=== PATIENT | female | born 1985 | race Caucasian/White ===

== ENCOUNTER 2020-03-05 07:47 | Emergency (ER) | payer OTHER, SELFPAY ==
[2020-03-05 07:54] VITALS: BMI 24.7
[2020-03-05 07:56] VITALS: BP 115/69; PULSE 97; RESP 16; TEMP 36.8; O2SAT 96
--- NOTE | 2020-03-05 08:34 | XR_ITS ---
WS: [id number] PORTABLE CHEST HISTORY: dyspnea/cough COMPARISON: 05/28/2015 Lungs are clear and well expanded. No pleural effusion or pneumothorax. Cardiac size: Normal. Mediastinum/Aorta: Normal mediastinum. No osseous abnormality seen. XR/XR chest 1V portable [id number] IMPRESSION: Unremarkable portable chest.
--- NOTE | 2020-03-05 08:38 | ED_ITS ---
HPI - Fever General: Chief Complaint: Fever Stated Complaint: RECENT FEVER/INSECT BITE Time Seen by Provider: 03/05/20 07:53 History of Present Illness: HPI Narrative: 34-year-old female who comes in complaining of a fever that started last night she had a T-max of 102 measured axillary. She has had a cough that is been very minimally productive and a lot of generalized myalgias with nausea. She has an old prescription for Phenergan which she uses for vertigo which she has had chronic problems with that actually helped her nausea quite a bit she did not take anything for her fever it resolved spontaneously overnight. She is not had any known sick contacts at home she not had any known COVID-19 contacts. She denies any GI or symptoms no dysuria urgency or frequency she is previously had a hysterectomy and is at no risk for obviously. She denies any abdominal pain. She has not had previous episodes similar to this. After I seen and taken the history from the patient she mentioned to the pathology laboratory aide that she had a tick bite a few weeks ago we will add a tick panel MD elicited complaint: fever Onset (ago): day(s) (1) Exacerbating factors: nothing Relieving factors: rest and other (antiemetics) Associated symptoms: Reports chills, cough, myalgias and nausea; Deny abdominal pain, flank pain, chest pain, diarrhea, dysuria, headache(s), nasal congestion, rash, rhinorrhea, short of breath, sinus pain, stiffness, sore throat or vomiting Treatments prior to arrival fever: other (previosuly prescribed antiemetics) Review of Systems Const: Reports: chills ENMT: Denies: nasal congestion or sinus pain Card: Denies: chest pain Resp: Reports: productive cough; Denies: dyspnea or non-productive cough GI: Reports: nausea; Denies: abdominal pain, vomiting or diarrhea : Denies: flank pain or dysuria Skin/Breast: Denies: rash or pruritus Neuro: Denies: headache(s) PFS ED PFSH: Medical History (Updated 03/05/20 @ 11:04 by Doyle Aguila DO) Anxiety Asthma Depression Vertigo Surgical History (Updated 03/05/20 @ 08:42 by Doyle Aguila DO) History of hysterectomy History of tubal ligation Social History (Updated 03/05/20 @ 08:42 by Doyle Aguila DO) Smoking and tobacco status: current every day smoker cigarettes Physical Exam Const: COMMON NORMALS: no acute distress GENERAL APPEARANCE: cooperative and comfortable ORIENTATION/CONSCIOUSNESS: Yes awake, Yes oriented to person, Yes oriented to place and Yes oriented to time HENMT: COMMON NORMALS: normocephalic, atraumatic, hearing grossly normal bilaterally, external ears normal, EAC's normal, TM's normal bilaterally, Normal nasal mucous membranes and turbinates present, moist oral mucous membranes and oropharynx normal HEAD & SCALP: normocephalic and atraumatic NOSE: Normal nasal mucous membranes and turbinates present EXTERNAL EAR: Yes external ears normal EXTERNAL AUDITORY CANAL: EAC's normal TYMPANIC MEMBRANE: TM's normal bilaterally Eye: COMMON NORMALS: Equal, round and reactive pupils present, EOMs intact bilaterally, conjunctivae normal and no scleral icterus CONJUNCTIVA: Yes conjunctivae normal PUPIL: Yes Equal, round and reactive pupils present Neck/C-Spine: COMMON NORMALS: full ROM, no lymphadenopathy, supple and no JVD Lymph: LYMPHATIC: no lymphadenopathy noted and no lymphedema noted Resp: COMMON NORMALS: normal respiratory effort, No retractions, No use of accessory muscles and clear to auscultation bilaterally AUSCULTATION: clear to auscultation bilaterally Cardio: COMMON NORMALS: no JVD, regular rate, regular rhythm and No murmurs present (Cardio) RATE: regular rate RHYTHM: regular rhythm GI: COMMON NORMALS: Soft to palpation and No hepatosplenomegaly present AUSCULTATION: Yes normoactive bowel sounds PALPATION: Yes Soft to palpation, No Tenderness to palpation present (GI), No Guarding due to palpation present (GI) and Yes No hepatosplenomegaly present Extremity: COMMON NORMALS: normal to inspection, capillary refill normal, no clubbing, cyanosis or edema, no calf tenderness and no pedal edema Neuro: SENSORIUM/ORIENTATION: Yes oriented to person, Yes oriented to place and Yes oriented to time Skin: GENERAL SKIN EXAM: other (Patient is a small eschared area on the left mid mandible slightly erythematous around there there is some dried eschar in place there is no lymphedema no streaking.) Course Vital Signs: Vital signs: Vital Signs Temperature 98.3 F 03/05/20 07:56 Pulse Rate 66 06/23/20 11:57 Respiratory Rate 16 03/05/20 11:57 Blood Pressure 118/60 03/05/20 11:57 Pulse Oximetry 98 03/05/20 11:57 MDM - Fever MDM Narrative: Medical decision making narrative: Fever of unknown origin am concerned the patient may have been exposed to COVID community wide. We will go ahead and swab her asked her to quarantine herself until we get the result back she does have more gastroenteritis-like symptoms however COVID has been known to present that way. We will give her some Zofran she should self quarantine until the results come back. Topical antibiotic ointment for the area on the left side of the jaw. Lab Data: Labs: Lab Results 03/05/20 03/05/20 03/05/20 Range/Units 08:44 08:44 08:44 WBC 3.4 L (4.0-10.0) 10^3/ uL RBC 4.06 L (4.1-5.3) 10^6/u L Hgb 11.5 (11.5-15.3) g/dL Hct 35.1 L (37.0-47.0) % MCV 86.5 (81-99) fL MCH 28.3 (28.0-34.0) pg MCHC 32.8 (30.0-36.0) g/dL RDW 11.9 L (12.1-15.1) % Plt Count 187 (130-400) 10^3/c mm MPV 8.9 (7.4-10.4) fL Neut % (Auto) 64.3 % Lymph % (Auto) 26.0 % Mower % (Auto) 8.8 % Eos % (Auto) 0.0 % Baso % (Auto) 0.6 % Neut # (Auto) 2.2 (1.8-7.7) 10^3/u L Lymph # (Auto) 0.9 (0.8-4.8) 10^3/u L Mower # (Auto) 0.3 (0.2-0.9) 10^3/u L Eos # (Auto) 0.0 (0.0-0.8) 10^3/u L Baso # (Auto) 0.0 (0.0-0.1) 10^3/u L Nucleated RBC % (a uto) 0 % Nucleated RBCs # 0.0 /100WBC Sodium 137 (136-145) mmol/L Potassium 3.7 (3.5-5.1) mmol/L Chloride 103 (98-107) mmol/L Carbon Dioxide 23 (22-29) mmol/L Anion Gap 14.7 (5-19) BUN 10 (6-20) mg/dL Creatinine 0.5 (0.5-0.9) mg/dL GFR Calculation 142.1 H (90-130) mL/min Glucose 102 (65-115) mg/dL Calculated Osmolal ity 280 L (285-295) mOsm/k g Calcium 8.9 (8.5-10.5) mg/dL Total Bilirubin 0.3 (0.15-1.2) mg/dL AST 15 (0-32) U/L ALT 9 (0-33) U/L Alkaline Phosphata se 56 (35-105) IU/L Total Protein 6.5 L (6.6-8.7) g/dL Albumin 4.2 (3.5-5.2) g/dL Globulin 2.3 (1.3-4.6) g/dL Lipase 15 (13-60) U/L Urine Color (Yellow) Urine Appearance (CLEAR) Urine pH (5-7) Ur Specific Gravit y (1.005-1.030) Urine Protein (Negative) Urine Glucose (UA) (Normal) Urine Ketones (Negative) Urine Blood (Negative) Urine Nitrate (Negative) Urine Bilirubin (NEGATIVE) Urine Urobilinogen (Negative) mg/dL Ur Leukocyte Medina ase (Negative) Urine RBC (0-2) /hpf Urine WBC (0-5) /hpf Ur Squamous Epith Cells (0-5) Urine Bacteria (NONE) Urine Mucus Lyme Ab (Western B lot) <0.90 index SARS-CoV-2 RNA (RT -PCR) (NOT DETECTED) 03/05/20 03/05/20 Range/Units 09:23 11:50 WBC (4.0-10.0) 10^3/ uL RBC (4.1-5.3) 10^6/u L Hgb (11.5-15.3) g/dL Hct (37.0-47.0) % MCV (81-99) fL MCH (28.0-34.0) pg MCHC (30.0-36.0) g/dL RDW (12.1-15.1) % Plt Count (130-400) 10^3/c mm MPV (7.4-10.4) fL Neut % (Auto) % Lymph % (Auto) % Mower % (Auto) % Eos % (Auto) % Baso % (Auto) % Neut # (Auto) (1.8-7.7) 10^3/u L Lymph # (Auto) (0.8-4.8) 10^3/u L Mower # (Auto) (0.2-0.9) 10^3/u L Eos # (Auto) (0.0-0.8) 10^3/u L Baso # (Auto) (0.0-0.1) 10^3/u L Nucleated RBC % (a uto) % Nucleated RBCs # /100WBC Sodium (136-145) mmol/L Potassium (3.5-5.1) mmol/L Chloride (98-107) mmol/L Carbon Dioxide (22-29) mmol/L Anion Gap (5-19) BUN (6-20) mg/dL Creatinine (0.5-0.9) mg/dL GFR Calculation (90-130) mL/min Glucose (65-115) mg/dL Calculated Osmolal ity (285-295) mOsm/k g Calcium (8.5-10.5) mg/dL Total Bilirubin (0.15-1.2) mg/dL AST (0-32) U/L ALT (0-33) U/L Alkaline Phosphata se (35-105) IU/L Total Protein (6.6-8.7) g/dL Albumin (3.5-5.2) g/dL Globulin (1.3-4.6) g/dL Lipase (13-60) U/L Urine Color Yellow (Yellow) Urine Appearance Clear (CLEAR) Urine pH 6.0 (5-7) Ur Specific Gravit y 1.015 (1.005-1.030) Urine Protein Neg (Negative) Urine Glucose (UA) Norm (Normal) Urine Ketones Negative (Negative) Urine Blood 2+ H (Negative) Urine Nitrate Negative (Negative) Urine Bilirubin Neg (NEGATIVE) Urine Urobilinogen Norm (Negative) mg/dL Ur Leukocyte Medina ase Negative (Negative) Urine RBC 0-4 H (0-2) /hpf Urine WBC None (0-5) /hpf Ur Squamous Epith Cells 0-4 H (0-5) Urine Bacteria Trace (NONE) Urine Mucus 2+ Lyme Ab (Western B lot) index SARS-CoV-2 RNA (RT -PCR) Not detected (NOT DETECTED) Discharge Plan Discharge Patient Disposition: Home, Self-Care Clinical Impression: Fever of unknown origin Condition: Stable Prescriptions: New Zofran 4 mg tablet 4 mg PO Q6H PRN (Reason: nausea and vomiting) Qty: 20 RF: 0 No Action promethazine 25 mg Tablet 25 mg PO QID PRN (Reason: Nausea) RF: 0 Discharge Orders: Discharge Order (Routine); Ordered 03/05/20 Ordered By: Doyle Aguila Referrals: Jasiel Khan MD [Primary Care Provider] - Discharge Diet: Clear Liquid Discharge Activity: Increase activity as tolerated Patient Instructions: Fever in Adults (ED), Gastroenteritis (ED) Activity Restrictions/Additional Instructions: Recommend that you self quarantine until the results of your Kovic testing is back. I would expect that you will be off of work for 2 to 3 days until the results are available Tylenol for fever rest if breathing gets more difficult return to the emergency room immediately. You can use Zofran or the promethazine for nausea clear liquid diet for 24 days and advance as tolerated Discharge Date/Time: 03/05/20 11:57 Coding Level of Care Code ED Service Delivery Director for Mita Fwd Exam Comprehensive
[2020-03-05 08:50] LABS: Basophils % 0.6 %; Hematocrit 35.1 % (37.0-47.0); Hemoglobin 11.5 g/dL (11.5-15.3); Lymphocytes # 0.9 10^3/uL (0.8-4.8); Mean Corpuscular HGB Conc 32.8 g/dL (30.0-36.0); Mean Corpuscular Hemoglobin 28.3 pg (28.0-34.0); Mean Corpuscular Volume 86.5 fL (81-99); Mean Platelet Volume 8.9 fL (7.4-10.4); Monocytes # 0.3 10^3/uL (0.2-0.9); Monocytes % 8.8 %; Neutrophils # 2.2 10^3/uL (1.8-7.7); Neutrophils % 64.3 %; Nucleated Red Blood Cells % 0 %; Platelet Count 187 10^3/cmm (130-400); Red Blood Count 4.06 10^6/uL (4.1-5.3); Red Cell Distribution Width 11.9 % (12.1-15.1); White Blood Count 3.4 10^3/uL (4.0-10.0)
[2020-03-05] MEDS: ondansetron 2 mg/ML SDV 2 mL 4 MG IVP (09:05)
[2020-03-05] MEDS: sodium chloride 0.9% 1,000 ML 999 ML IV (09:05)
[2020-03-05 09:07] LABS: Alanine Aminotransferase 9 U/L (0-33); Albumin Level 4.2 g/dL (3.5-5.2); Alkaline Phosphatase 56 IU/L (35-105); Anion Gap 14.7 (5-19); Aspartate Amino Transferase 15 U/L (0-32); Blood Urea Nitrogen 10 mg/dL (6-20); Calcium 8.9 mg/dL (8.5-10.5); Carbon Dioxide 23 mmol/L (22-29); Chloride 103 mmol/L (98-107); Globulin 2.3 g/dL (1.3-4.6); Glomerular Filtration Rate 142.1 mL/min (90-130); Glucose 102 mg/dL (65-115); Lipase 15 U/L (13-60); Osmolality Calculated 280 mOsm/kg (285-295); Potassium 3.7 mmol/L (3.5-5.1); Sodium 137 mmol/L (136-145); Total Bilirubin 0.3 mg/dL (0.15-1.2); Total Protein 6.5 g/dL (6.6-8.7)
[2020-03-05 09:24] VITALS: BP 98/80; PULSE 78; RESP 16; O2SAT 100
[2020-03-05 09:44] LABS: Urine Appearance Clear (CLEAR); Urine Color Yellow (Yellow)
[2020-03-05 09:45] LABS: Add Urine Microscopic? YES; Bilirubin Urine Neg (NEGATIVE); Blood Urine 2+ (Negative); Glucose Urine UA Norm (Normal); Ketones Urine Negative (Negative); Leukocyte Esterase Urine Negative (Negative); Nitrate Urine Negative (Negative); Protein Urine Neg (Negative); Specific Gravity, Urine 1.015 (1.005-1.030); Urobilinogen Urine Norm (Negative)
[2020-03-05 10:07] LABS: Add Urine Culture? No; Bacteria Urine TRACE; Mucus Urine 2+; RBC Urine 0-4 /hpf (0-2); Squamous Epithelial Cell Urine 0-4 (0-5)
[2020-03-05 11:57] VITALS: BP 118/60; PULSE 66; RESP 16; O2SAT 98
[2020-03-06 12:57] LABS: Lyme AB Screen <0.90 index
[2020-03-06 12:57] LABS: Quest SARS-CoV-2 RNA NOT DETECTED (NOT DETECTED)
[2020-03-08 17:22] LABS: E. Chaffeensis AB IGG <1:64; E. Chaffeensis AB IGM <1:20; RMSF IGG NOT DETECTED; RMSF IGM NOT DETECTED
== END 2020-03-05 11:57 | disposition home or self-care (01) ==
PROVIDERS: Emergency Provider Family Medicine; Family Provider Family Medicine; PCP Family Medicine
DX: R50.9 Fever, unspecified (principal); F17.210 Nicotine dependence, cigarettes, uncomplicated
CPT/HCPCS: 12345; 36415; 71045; 80053; 81001; 83690; 85025; 86618; 86666; 86757; 87635; 96360; 96361; 96374; 96375; 99283; 99284; J2405; J7030

== ENCOUNTER 2020-04-15 09:52 | Outpatient (CLI) | payer OTHER, SELFPAY ==
--- NOTE | 2020-04-15 10:01 | XR_ITS ---
WS: [id number] CHEST 2 VIEWS HISTORY: ACUTE BRONCHITIS COMPARISON: 03/05/2020 Lungs: Clear with no abnormality. No pleural effusion or pneumothorax. Cardiac size: Normal. Mediastinum/Aorta: Normal mediastinum. Bones: Normal. XR/XR chest 2V* [id number] IMPRESSION: Normal chest.
--- NOTE | 2021-12-10 15:19 | XR_ITS ---
WS: [id number] Exam: XR KUB [id number] Date/Time of Exam: 12/10/2021 3:21 PM Reason For Exam: back pain No bowel obstruction or free air. Moderate amount of stool in the right colon. No sign of organ enlar gement. Regional bony elements appear normal. Small nonspecific pelvic calcifications noted which may be phleboliths.
== END 2020-04-15 09:53 | disposition home or self-care (01) ==
LOC: RAD 09:55
PROVIDERS: PCP Family Medicine; Visit Provider Family Medicine
DX: J20.9 Acute bronchitis, unspecified (principal)
CPT/HCPCS: 71046

== ENCOUNTER 2020-04-16 09:04 | Emergency (ER) | payer OTHER, SELFPAY ==
[2020-04-16 09:07] VITALS: BMI 25.2
[2020-04-16 09:10] VITALS: BP 107/77; PULSE 70; RESP 14; TEMP 36.7; O2SAT 100
[2020-04-16 09:45] LABS: Basophils % 0.2 %; Eosinophils % 0.3 %; Hematocrit 40.2 % (37.0-47.0); Hemoglobin 12.8 g/dL (11.5-15.3); Lymphocytes % 27.6 %; Mean Corpuscular HGB Conc 31.8 g/dL (30.0-36.0); Mean Corpuscular Hemoglobin 28.3 pg (28.0-34.0); Mean Corpuscular Volume 88.7 fL (81-99); Mean Platelet Volume 9.4 fL (7.4-10.4); Monocytes # 0.6 10^3/uL (0.2-0.9); Monocytes % 5.8 %; Neutrophils % 65.7 %; Nucleated Red Blood Cells % 0 %; Platelet Count 298 10^3/cmm (130-400); Red Blood Count 4.53 10^6/uL (4.1-5.3); Red Cell Distribution Width 12.4 % (12.1-15.1)
--- NOTE | 2020-04-16 09:45 | W.ED.SOB ---
HPI - SOB/Dyspnea General: Chief Complaint: Shortness of Breath/Dyspnea Stated Complaint: cp/sob Time Seen by Provider: 04/16/20 09:06 History of Present Illness: HPI Narrative: 34-year-old female comes in complaining of shortness of breath intermittently for last 2 to 3 weeks she has been short of breath she initially seen her PCP they had evaluated her she has a history of asthma decided she was improving and weeks it Kovic test she does not improve in a week and she underwent Kovic testing results of which came back early last late last week which was negative. She was then started on steroids and antibiotics. Despite this she feels it still not resolving. She does have a nebulizer at home she has been using it about 3 times per day. She has a very slight productive cough initially she states she had a fever but that has since resolved. She also notes she has pain when she takes a deep breath or is in particular positions with inspiration. She denies any hemoptysis. MD elicited complaint: shortness of breath, cough and pain with inspiration Pertinent past history: asthma Onset (ago): week(s) (2+) Context: recent illness Timing: constant Severity: moderate Exacerbating factors: exertion and coughing Relieving factors: oxygen, rest and bronchodilators Known history of: asthma Associated symptoms: Reports chest pain, cough and fever(s); Deny chest congestion, diaphoresis, dizziness, extremity pain, hemoptysis, myalgias, nausea, orthopnea, palpitations, syncope or vomiting Treatment prior to arrival: bronchodilator Review of Systems Const: Reports: fever(s); Denies: diaphoresis ENMT: Denies: throat pain, ear or mastoid pain, nasal discharge or nasal congestion Card: Reports: chest pain; Denies: palpitations, syncope or orthopnea Resp: Denies: hemoptysis or chest congestion GI: Denies: nausea or vomiting : Denies: flank pain, difficulty voiding, dysuria, urinary frequency or urinary urgency Musc: Denies: extremity pain Skin/Breast: Denies: rash or pruritus Neuro: Denies: dizziness PFSH ED PFSH: Medical History Anxiety Asthma Depression Vertigo Surgical History History of hysterectomy History of tubal ligation Social History (Updated 04/16/20 @ 09:50 by Doyle Aguila DO) Smoking and tobacco status: current every day smoker cigarettes Alcohol intake: never Physical Exam Const: COMMON NORMALS: no acute distress GENERAL APPEARANCE: cooperative and comfortable ORIENTATION/CONSCIOUSNESS: Yes awake, Yes oriented to person, Yes oriented to place and Yes oriented to time HENMT: COMMON NORMALS: normocephalic and atraumatic HEAD & SCALP: normocephalic and atraumatic Eye: COMMON NORMALS: Equal, round and reactive pupils present, EOMs intact bilaterally, conjunctivae normal and no scleral icterus CONJUNCTIVA: Yes conjunctivae normal PUPIL: Yes Equal, round and reactive pupils present Neck/C-Spine: COMMON NORMALS: full ROM, no lymphadenopathy, supple and no JVD Lymph: LYMPHATIC: no lymphadenopathy noted and no lymphedema noted Resp: COMMON NORMALS: normal respiratory effort, No retractions, No use of accessory muscles and clear to auscultation bilaterally AUSCULTATION: clear to auscultation bilaterally Cardio: COMMON NORMALS: no JVD, regular rate, regular rhythm and No murmurs present (Cardio) RATE: regular rate RHYTHM: regular rhythm GI: COMMON NORMALS: Soft to palpation and No hepatosplenomegaly present AUSCULTATION: Yes normoactive bowel sounds PALPATION: Yes Soft to palpation, No Tenderness to palpation present (GI), No Guarding due to palpation present (GI) and Yes No hepatosplenomegaly present Extremity: COMMON NORMALS: normal to inspection, capillary refill normal, no clubbing, cyanosis or edema, no calf tenderness and no pedal edema Neuro: SENSORIUM/ORIENTATION: Yes oriented to person, Yes oriented to place and Yes oriented to time Skin: COMMON NORMALS: no rashes or lesions noted GENERAL SKIN EXAM: no rashes or lesions noted Course Vital Signs: Vital signs: Vital Signs Temperature 98.1 F 04/16/20 09:10 Pulse Rate 78 04/16/20 12:25 Respiratory Rate 18 04/16/20 12:25 Blood Pressure 122/74 04/16/20 12:25 Pulse Oximetry 98 04/16/20 12:25 MDM - SOB/Dyspnea MDM Narrative: Medical decision making narrative: To the extent that she does have COVID she is managing very well especially given she has some underlying asthma. I suspect this is more asthma exacerbation. We did swab her for COVID will also start her on prednisone and promethazine as needed for nausea. Also cover her with some Augmentin follow-up if she has any worsening symptoms or change of symptoms we will contact her with the results of her COVID swab. Lab Data: Labs: Lab Results 04/16/20 04/16/20 04/16/20 Range/Units 09:14 09:14 09:14 WBC 11.0 H (4.0-10.0) 10^3/ uL RBC 4.53 (4.1-5.3) 10^6/u L Hgb 12.8 (11.5-15.3) g/dL Hct 40.2 (37.0-47.0) % MCV 88.7 (81-99) fL MCH 28.3 (28.0-34.0) pg MCHC 31.8 (30.0-36.0) g/dL RDW 12.4 (12.1-15.1) % Plt Count 298 (130-400) 10^3/c mm MPV 9.4 (7.4-10.4) fL Neut % (Auto) 65.7 % Lymph % (Auto) 27.6 % [place] % (Auto) 5.8 % Eos % (Auto) 0.3 % Baso % (Auto) 0.2 % Neut # (Auto) 7.20 (1.8-7.7) 10^3/u L Lymph # (Auto) 3.0 (0.8-4.8) 10^3/u L [place] # (Auto) 0.6 (0.2-0.9) 10^3/u L Eos # (Auto) 0.0 (0.0-0.8) 10^3/u L Baso # (Auto) 0.0 (0.0-0.1) 10^3/u L Nucleated RBC % (a uto) 0 % Nucleated RBCs # 0.0 /100WBC D-Dimer 1.15 H (0-0.59) ug/mIFE U Sodium 137 (136-145) mmol/L Potassium 4.0 (3.5-5.1) mmol/L Chloride 101 (98-107) mmol/L Carbon Dioxide 27 (22-29) mmol/L Anion Gap 13.0 (5-19) BUN 9 (6-20) mg/dL Creatinine 0.6 (0.5-0.9) mg/dL GFR Calculation 115.1 (90-130) mL/min Glucose 80 (65-115) mg/dL Calculated Osmolal ity 279 L (285-295) mOsm/k g Calcium 9.2 (8.5-10.5) mg/dL Total Bilirubin 0.2 (0.15-1.2) mg/dL AST 13 (0-32) U/L ALT 13 (0-33) U/L Alkaline Phosphata se 63 (35-105) IU/L Total Protein 7.5 (6.6-8.7) g/dL Albumin 4.7 (3.5-5.2) g/dL Globulin 2.8 (1.3-4.6) g/dL SARS-CoV-2 RNA (RT -PCR) (NOT DETECTED) 04/16/20 Range/Units 12:10 WBC (4.0-10.0) 10^3/ uL RBC (4.1-5.3) 10^6/u L Hgb (11.5-15.3) g/dL Hct (37.0-47.0) % MCV (81-99) fL MCH (28.0-34.0) pg MCHC (30.0-36.0) g/dL RDW (12.1-15.1) % Plt Count (130-400) 10^3/c mm MPV (7.4-10.4) fL Neut % (Auto) % Lymph % (Auto) % [place] % (Auto) % Eos % (Auto) % Baso % (Auto) % Neut # (Auto) (1.8-7.7) 10^3/u L Lymph # (Auto) (0.8-4.8) 10^3/u L [place] # (Auto) (0.2-0.9) 10^3/u L Eos # (Auto) (0.0-0.8) 10^3/u L Baso # (Auto) (0.0-0.1) 10^3/u L Nucleated RBC % (a uto) % Nucleated RBCs # /100WBC D-Dimer (0-0.59) ug/mIFE U Sodium (136-145) mmol/L Potassium (3.5-5.1) mmol/L Chloride (98-107) mmol/L Carbon Dioxide (22-29) mmol/L Anion Gap (5-19) BUN (6-20) mg/dL Creatinine (0.5-0.9) mg/dL GFR Calculation (90-130) mL/min Glucose (65-115) mg/dL Calculated Osmolal ity (285-295) mOsm/k g Calcium (8.5-10.5) mg/dL Total Bilirubin (0.15-1.2) mg/dL AST (0-32) U/L ALT (0-33) U/L Alkaline Phosphata se (35-105) IU/L Total Protein (6.6-8.7) g/dL Albumin (3.5-5.2) g/dL Globulin (1.3-4.6) g/dL SARS-CoV-2 RNA (RT -PCR) Not detected (NOT DETECTED) Discharge Plan Discharge Patient Disposition: Home Clinical Impression: Asthma with exacerbation, Suspected COVID-19 virus infection Condition: Stable Prescriptions: No Action promethazine 25 mg Tablet 25 mg PO QID PRN (Reason: Nausea) RF: 0 prednisone 20 mg Tablet 20 mg PO DAILY RF: 0 Augmentin 875-125 mg Tablet 1 tab PO BID RF: 0 Discharge Orders: Discharge Order (Routine); Ordered 04/16/20 Ordered By: Doyle Aguila Referrals: Jasiel Khan MD [Primary Care Provider] - Discharge Diet: Usual diet Discharge Activity: Increase activity as tolerated Activity Restrictions/Additional Instructions: Please quarantine yourself at home until the results of the COVID test are back. Continue to use albuterol as needed for symptoms. Discharge Date/Time: 04/16/20 12:26 Coding Level of Care Code ED Ski Patrol Director for Chg Fwd Exam Comprehensive
[2020-04-16 09:58] LABS: Alanine Aminotransferase 13 U/L (0-33); Albumin Level 4.7 g/dL (3.5-5.2); Alkaline Phosphatase 63 IU/L (35-105); Aspartate Amino Transferase 13 U/L (0-32); Blood Urea Nitrogen 9 mg/dL (6-20); Calcium 9.2 mg/dL (8.5-10.5); Carbon Dioxide 27 mmol/L (22-29); Chloride 101 mmol/L (98-107); Globulin 2.8 g/dL (1.3-4.6); Glomerular Filtration Rate 115.1 mL/min (90-130); Glucose 80 mg/dL (65-115); Osmolality Calculated 279 mOsm/kg (285-295); Sodium 137 mmol/L (136-145); Total Bilirubin 0.2 mg/dL (0.15-1.2); Total Protein 7.5 g/dL (6.6-8.7)
[2020-04-16 10:29] LABS: D Dimer 1.15 ug/mIFEU (0-0.59)
--- NOTE | 2020-04-16 10:45 | CT_ITS ---
WS: [id number] CT CHEST ANGIOGRAPHY WITH REFORMATS HISTORY: chest pain/dyspnea TECHNIQUE: Contiguous axial images are obtained through the chest during arterial injection of intrav enous contrast. Images are reconstructed to evaluate the pulmonary arteries. MIP imaging also reviewe d. All CT scans at [facility] use at least one of these dose optimization techniques: aut omated exposure control; mA and/or kV adjustment per patient size (includes targeted exams where dose is matched to clinical indication); or iterative reconstruction. CONTRAST: Omnipaque 350; 95 mL IV. DLP: 402.06 mGy.cm COMPARISON: None available. Very good opacification of the pulmonary arteries. No filling defects or pulmonary embolism. Normal-s ized thoracic aorta. No dissection or aneurysm. No pericardial or pleural effusions. Normal size hear t. No pneumonia. There is some very mild haziness over both lungs which may improve with better inspirat ion. No pneumothorax. No mediastinal or hilar adenopathy. Visualized upper abdominal structures are n ormal. No bone destruction. CT/CT angio chest PE protcl [id number] IMPRESSION: 1. No pulmonary embolism. 2. No pneumonia.
[2020-04-16 10:56] VITALS: BP 96/68; PULSE 70; RESP 18; O2SAT 100
--- NOTE | 2020-04-16 10:57 | PC.NURSE ---
Pt updated and informed that she would have a CTA.
--- NOTE | 2020-04-16 11:05 | PC.NURSE ---
Pt taken to CT
[2020-04-16] MEDS: iohexol 350 mg/mL 100 mL Btl IV (11:13)
--- NOTE | 2020-04-16 11:16 | PC.NURSE ---
pt has returned from CT at this time
[2020-04-16 11:26] VITALS: BP 103/68; PULSE 67; RESP 16; O2SAT 100
[2020-04-16 11:47] VITALS: BP 130/92; PULSE 65; RESP 18; O2SAT 93
[2020-04-16 12:00] VITALS: BP 122/74; PULSE 78; RESP 18; O2SAT 98
[2020-04-16 12:25] VITALS: BP 122/74; PULSE 78; RESP 18; O2SAT 98
[2020-04-18 08:20] LABS: Quest SARS-CoV-2 RNA NOT DETECTED (NOT DETECTED)
== END 2020-04-16 12:26 | disposition home or self-care (01) ==
PROVIDERS: Emergency Provider Family Medicine; PCP Family Medicine
DX: J45.901 Unspecified asthma with (acute) exacerbation (principal); F17.210 Nicotine dependence, cigarettes, uncomplicated
CPT/HCPCS: 12345; 71275; 80053; 85025; 85378; 87635; 99283; Q9967

== ENCOUNTER → 2020-06-03 14:59 | Outpatient (BNVA) | payer OTHER, SELFPAY | PROVIDERS: PCP Family Medicine; Visit Provider Nurse Practitioner Family | DX: Z20.828 Contact with and (suspected) exposure to other viral communicable diseases (principal) | CPT/HCPCS: 87635 ==

== ENCOUNTER → 2021-04-22 15:17 | Outpatient (BNVA) | payer OTHER, SELFPAY | PROVIDERS: PCP Family Medicine; Visit Provider Family Medicine | DX: Z20.828 Contact with and (suspected) exposure to other viral communicable diseases (principal) | CPT/HCPCS: 87635 ==

== ENCOUNTER → 2021-04-24 11:24 | Outpatient (BNVA) | payer OTHER, SELFPAY | PROVIDERS: PCP Family Medicine; Visit Provider Nurse Practitioner Family | DX: Z20.822 Contact with and (suspected) exposure to COVID-19 (principal) | CPT/HCPCS: 87426; 87635 ==

== ENCOUNTER → 2021-05-13 11:49 | Outpatient (BNVA) | payer OTHER, SELFPAY | PROVIDERS: PCP Family Medicine; Visit Provider Family Medicine | DX: E66.9 Obesity, unspecified (principal); R53.83 Other fatigue | CPT/HCPCS: 80053; 84443; 85025 ==

== ENCOUNTER → 2021-06-10 12:33 | Outpatient (BNVA) | payer OTHER, SELFPAY | PROVIDERS: PCP Family Medicine; Visit Provider Family Medicine | DX: F43.22 Adjustment disorder with anxiety (principal); F50.89 Other specified eating disorder; R53.82 Chronic fatigue, unspecified; Z68.31 Body mass index [BMI] 31.0-31.9, adult | CPT/HCPCS: 82652; 85014; 85018 ==

== ENCOUNTER → 2021-08-18 11:15 | Outpatient (BNVA) | payer OTHER, SELFPAY | PROVIDERS: PCP Family Medicine; Visit Provider Family Medicine | DX: Z20.828 Contact with and (suspected) exposure to other viral communicable diseases (principal); Z20.822 Contact with and (suspected) exposure to COVID-19 | CPT/HCPCS: 87426; 87635 ==

== ENCOUNTER → 2021-09-16 12:15 | Outpatient (BNVA) | payer OTHER, SELFPAY | PROVIDERS: PCP Family Medicine; Visit Provider Family Medicine | DX: Z20.822 Contact with and (suspected) exposure to COVID-19 (principal) | CPT/HCPCS: 87635 ==

== ENCOUNTER → 2021-10-09 12:08 | Outpatient (BNVA) | payer OTHER, SELFPAY | PROVIDERS: PCP Family Medicine; Visit Provider Nurse Practitioner | DX: J02.9 Acute pharyngitis, unspecified (principal); R50.9 Fever, unspecified; J03.90 Acute tonsillitis, unspecified | CPT/HCPCS: 87400; 87880 ==

== ENCOUNTER → 2021-12-02 11:40 | Outpatient (BNVA) | payer OTHER, SELFPAY | PROVIDERS: PCP Family Medicine; Visit Provider Family Medicine | DX: N39.0 Urinary tract infection, site not specified (principal); R30.0 Dysuria | CPT/HCPCS: 81000 ==

== ENCOUNTER → 2021-12-03 08:58 | Outpatient (BNVA) | payer OTHER, SELFPAY | PROVIDERS: PCP Family Medicine; Visit Provider Family Medicine | DX: N39.0 Urinary tract infection, site not specified (principal); R30.0 Dysuria | CPT/HCPCS: 80048; 83036 ==

== ENCOUNTER → 2021-12-04 11:57 | Outpatient (BNVA) | payer OTHER, SELFPAY | PROVIDERS: PCP Family Medicine; Visit Provider Family Medicine | DX: N39.0 Urinary tract infection, site not specified (principal) | CPT/HCPCS: 87086 ==

== ENCOUNTER 2022-05-29 13:03 | Emergency (ER) | payer OTHER, SELFPAY ==
[2022-05-29 13:10] VITALS: BP 120/85; PULSE 118; RESP 16; TEMP 38.6; O2SAT 99
--- NOTE | 2022-05-29 13:16 | ECG_ITS ---
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 Measurements Intervals [place] Rate: 125 P: 65 PA: 136 QRS: 85 QRSD: 89 T: 47 QT: 311 QTc: 449 Interpretive Statements SINUS TACHYCARDIA MINIMAL ST DEPRESSION [0.025+ mV ST DEPRESSION] Compared to ECG 05/02/2019 12:55:40 ST (T wave) deviation now present Sinus bradycardia no longer present Sinus arrhythmia no longer present Incomplete right bundle-branch block no longer present Electronically Signed On 05-30-2022 8:36:46 CDT by Marisol Bejarano M.D. [email or web address]
--- NOTE | 2022-05-29 13:30 | XRR_ITS ---
PROCEDURE INFORMATION: Exam: XR Chest Exam date and time: 05/29/2022 1:38 PM Age: 37 years old Clinical indication: Dyspnea; Chest pressure; Prior surgery; Surgery type: Tubal, hysto; Patient HX: Tightness and pain in chest TECHNIQUE: Imaging protocol: Radiologic exam of the chest. Views: 1 view. COMPARISON: CR XR chest 2V* [id number] 04/15/2020 10:09 AM FINDINGS: Lungs: Unremarkable. No consolidation. Pleural spaces: Unremarkable. No pleural effusion. No pneumothorax. Heart/Mediastinum: Unremarkable. No cardiomegaly. Bones/joints: Unremarkable. XR/XR chest 1V portable [id number] IMPRESSION: No acute findings.
--- NOTE | 2022-05-29 13:37 | ED_ITS ---
HPI - General Adult General: Chief complaint: COVID symptoms Stated complaint: chest pain, SOB Time Seen by Provider: 05/29/22 13:11 History of Present Illness: Patient is a 37-year-old female with a history of COVID in September presenting to the emergency room with concerns for cough, general weakness and sore throat history for new. In addition, patient reports sharp chest pain on the right side of the chest radiating to the middle of the chest with worse with inspiration. Patient also reported fever and chills with the symptoms. Patient denies any diarrhea melena/hematochezia or complaints or abdominal pain. Patient tells me that her and children were sick at home and were tested negative for COVID. Patient has not been tested for COVID today. Patient came to the emergency room for further evaluation of the symptoms. Patient denies any recent immobilization or surgery. Patient denies any OCP use. Denies any history of smoking. Patient denies history of VTE in the past. Onset:1 day ago Duration:1 day Location:home Severity:moderate Associated symptoms: Reports chest pain (+sharp chest pain with inspiration) and dyspnea; Deny nausea, rash, palpitations or vomiting Review of Systems Const: Reports: fever(s), chills, body aches and fatigue Eyes: Denies: change in vision ENMT: Denies: mouth pain Card: Reports: chest pain (+sharp chest pain with inspiration); Denies: palpitations Resp: Reports: dyspnea and non-productive cough GI: Denies: abdominal pain, nausea, vomiting or diarrhea : Denies: dysuria Musc: Denies: extremity pain Skin/Breast: Denies: rash or new lesions Neuro: Denies: weakness in extremities Psych: Reports: other (Normal mood) Blair/Lymph: Denies: easy bruising PFS ED PFSH: Medical History (Updated 05/29/22 @ 16:46 by Julissa Torres MD) Anxiety Asthma Depression Vertigo Surgical History History of hysterectomy History of tubal ligation Family History Other Cancer Social History Smoking and tobacco status: former smoker Alcohol intake: current Alcohol intake frequency: holidays/special occasions only Physical Exam Const: COMMON NORMALS: alert HENMT: COMMON NORMALS: atraumatic HEAD & SCALP: atraumatic MOUTH: moist mucous membranes abnormal Eye: COMMON NORMALS: EOMs intact bilaterally and conjunctivae normal CONJUNCTIVA: Yes conjunctivae normal Neck/C-Spine: COMMON NORMALS: full ROM and supple Resp: COMMON NORMALS: normal respiratory effort and clear to auscultation bilaterally AUSCULTATION: clear to auscultation bilaterally Cardio: RATE: tachycardic GI: COMMON NORMALS: Soft to palpation and non-tender PALPATION: Yes Soft to palpation OTHER: No focal TTP. NO guarding rebound, guarding, rigidity. No CVA tenderness to percussion. Neg Myers/Neg McBurney's point tenderness, no suprabupic tenderness to palpation. Extremity: COMMON NORMALS: full ROM Neuro: SENSORIUM/ORIENTATION: Yes alert MOTOR EXAM: No Abnormal motor strength present and Other motor observations present (no focal motor deficits) Psych: COMMON NORMALS: speech normal SPEECH: Yes normal speech MOOD & AFFECT: Yes euthymic mood Course Vital Signs: Vital signs: Vital Signs Temperature 101.4 F H 05/29/22 13:10 Pulse Rate 99 05/29/22 17:00 Respiratory Rate 18 05/29/22 17:00 Blood Pressure 108/71 05/29/22 17:00 Pulse Oximetry 100 05/29/22 17:00 Oxygen Delivery Me thod 05/29/22 14:10 [facility] - General Adult Medical Decision Making Patient is a 37-year-old female with a history of COVID in September presenting to the emergency room with concerns for cough, general weakness and sore throat yesterday night. On exam, patient is febrile to 101.4 degrees. Patient is noted to satting greater than 95% without any increased work of breathing. Tachycardiac to the 110s on arrival Patient has clear lung sounds. X-ray chest appears to be clear. Patient has unremarkable white count. Swabs are positive for COVID. CT is negative for PE. She received IVF and Tylenol reports feeling some medically improved. Patient's heart rate improved on reassessment. Patient is able to tolerate p.o. without any difficulty. Her heart rate improved. Patient reports symptomatic improvement after medication and IVF. Rx tylenol PRN fever Disposition: Discharge. Patient counseled regarding diagnostic impression, treatment plan. Patient given ED strict return precautions to return for continuation, worsening, or development of new symptoms. Instructed to f/u w/ PCP regarding symptoms today. Patient verbalized understanding. Lab Data : 05/29/22 14:45 05/29/22 14:45 Radiology Impressions Chest X-Ray 05/29/22 13:30 IMPRESSION: No acute findings. Chest CTA 05/29/22 14:27 IMPRESSION: No acute chest abnormality. Laboratory Results WBC 3.7 10^3/uL (4.0-10.0) L 05/29/22 14:45 RBC 3.84 10^6/uL (4.1-5.3) L 05/29/22 14:45 Hgb 11.0 g/dL (11.5-15.3) L 05/29/22 14:45 Hct 34.9 % (37.0-47.0) L 05/29/22 14:45 MCV 90.9 fl (81-99) 05/29/22 14:45 MCH 28.6 pg (28.0-34.0) 05/29/22 14:45 MCHC 31.5 g/dL (30.0-36.0) 05/29/22 14:45 RDW 12.3 % (12.1-15.1) 05/29/22 14:45 Plt Count 217 10^3/cmm (130-400) 05/29/22 14:45 MPV 9.0 fL (7.4-10.4) 05/29/22 14:45 Neut % (Auto) 78.5 % 05/29/22 14:45 Lymph % (Auto) 9.2 % 05/29/22 14:45 [place] % (Auto) 10.6 % 05/29/22 14:45 Eos % (Auto) 1.1 % 05/29/22 14:45 Baso % (Auto) 0.3 % 05/29/22 14:45 Neut # (Auto) 2.90 10^3/uL (1.8-7.7) 05/29/22 14:45 Lymph # (Auto) 0.3 10^3/uL (0.8-4.8) L 05/29/22 14:45 [place] # (Auto) 0.4 10^3/uL (0.2-0.9) 05/29/22 14:45 Eos # (Auto) 0.0 10^3/uL (0.0-0.8) 05/29/22 14:45 Baso # (Auto) 0.0 10^3/uL (0.0-0.1) 05/29/22 14:45 Nucleated RBC % (auto) 0 % 05/29/22 14:45 Nucleated RBCs # 0.0 /100WBC 05/29/22 14:45 Sodium 134 mmol/L (136-145) L 05/29/22 14:45 Potassium 3.8 mmol/L (3.5-5.1) 05/29/22 14:45 Chloride 101 mmol/L (98-107) 05/29/22 14:45 Carbon Dioxide 22 mmol/L (22-29) 05/29/22 14:45 Anion Gap 14.8 (5-19) 05/29/22 14:45 BUN 8 mg/dL (6-20) 05/29/22 14:45 Creatinine 0.6 mg/dL (0.5-0.9) 05/29/22 14:45 GFR Calculation 113.1 mL/min (90-130) 05/29/22 14:45 Glucose 93 mg/dL (65-115) 05/29/22 14:45 Calculated Osmolality 276 mOsm/kg (285-295) L 05/29/22 14:45 Calcium 8.8 mg/dL (8.5-10.5) 05/29/22 14:45 Nasal Influ A H1 2008 PCR Not detected (NOT DETECT) 05/29/22 14:13 Coronavirus 229E (PCR) Not detected (NOT DETECT) 05/29/22 14:13 Influenza A (H1) PCR Not detected (NOT DETECT) 05/29/22 14:13 Influenza A (H3) PCR Not detected (NOT DETECT) 05/29/22 14:13 Influenza Type A (PCR) Not detected (NOT DETECT) 05/29/22 14:13 Influenza Type B (PCR) Not detected (NOT DETECT) 05/29/22 14:13 SARS-CoV-2 (PCR) Detected (NOT DETECT) A 05/29/22 14:13 Imaging Data Other Imaging: Radiologist's impression: [address] [address] [address] Scan Report Signed Patient: Zach Bocanegra Unit #: [id number] : 1985 Age/Sex: 37 / F ADM Date: 05/29/22 Loc: ER Room/Bed: Attending Dr: Ordering Provider/Ordering MD: Julissa Torres MD Date of Service: 05/29/22 Procedure(s): CT angio chest PE protcl [id number] Accession Number(s): [id number] Report Number: [id number] WS: [id number] CT angio chest PE protcl [id number] REASON FOR EXAM: severe chest pain, tachycardia TECHNIQUE: Coronal and sagittal 2-D and MIP reformations. IV CONTRAST ADMINISTERED: Omnipaque 350 64 mL. TOTAL EXAM DLP: 327.[address] scans at [facility] use at least one of these dose optimization techniques: automated exposure control; mA and/or kV adjustment per patient size (includes targeted exams where dose is matched to clinical indication); or iterative reconstruction. FINDINGS: No pulmonary emboli. Normal thoracic aorta. No mediastinal or hilar mass. No significant adenopathy. No lung nodule or lung mass. No infiltrate. No pleural abnormality. No focal abnormality of the bony thorax. CT/CT angio chest PE protcl [id number] IMPRESSION: No acute chest abnormality. ? Dictated By: Jacob Torres Jr, MD Signed By: Jacob Torres Jr, MD Signed Date/Time: 05/29/22 1541 DD/ [address] [address] XRay Report Signed Patient: Zach Bocanegra Unit #: [id number] : 1985 Age/Sex: 37 / F ADM Date: 05/29/22 Loc: ER Room/Bed: Attending Dr: Ordering Provider/Ordering MD: Julissa Torres MD Date of Service: 05/29/22 Procedure(s): XR chest 1V portable [id number] Accession Number(s): [id number] Report Number: [id number] PROCEDURE INFORMATION: Exam: XR Chest Exam date and time: 05/29/2022 1:38 PM Age: 37 years old Clinical indication: Dyspnea; Chest pressure; Prior surgery; Surgery type: Tubal, hysto; Patient HX: Tightness and pain in chest TECHNIQUE: Imaging protocol: Radiologic exam of the chest. Views: 1 view. COMPARISON: CR XR chest 2V* [id number] 04/15/2020 10:09 AM FINDINGS: Lungs: Unremarkable. No consolidation. Pleural spaces: Unremarkable. No pleural effusion. No pneumothorax. Heart/Mediastinum: Unremarkable. No cardiomegaly. Bones/joints: Unremarkable. XR/XR chest 1V portable [id number] IMPRESSION: No acute findings. ? Dictated By: Papa Olmos MD Signed By: Papa Olmos MD Signed Date/Time: 05/29/22 1418 DD/ 1338 Discharge Plan Discharge Patient Disposition: Home Clinical Impression: Cough, Generalized weakness, Fever, Dyspnea, COVID Condition: Stable Prescriptions: New acetaminophen 500 mg tablet 500 mg PO Q6H PRN (Reason: pain) 5 Days Qty: 20 0RF Paxlovid (EUA) 150 mg x 2- 100 mg tablet See Rx Instructions .ROUTE .COMPLEX Qty: 30 0RF Rx Instructions: take TWO 150 mg tablets of nirmatrelvir with ONE 100 mg tablet of ritonavir twice daily for 5 days No Action ibuprofen 800 mg tablet 800 mg PO .PRN amoxicillin-pot clavulanate [Augmentin] 875-125 mg tablet 1 tab PO Q12H 7 Days Qty: 14 0RF nitrofurantoin macrocrystal 100 mg capsule 100 mg PO BID 7 Days Qty: 14 0RF Rx Instructions: must administer with a meal/food albuterol sulfate 0.63 mg/3 mL solution for nebulization 0.63 mg inhalation QID PRN (Reason: shortness of breath or wheezing) 30 Days Qty: 75 2RF albuterol sulfate 90 mcg/actuation HFA aerosol inhaler 2 puff inhalation Q6H PRN (Reason: shortness of breath or wheezing) Qty: 8.5 2RF buspirone 5 mg tablet 5 mg PO TID PRN (Reason: as needed for anxiety attacks ) Qty: 30 3RF Discharge Orders: Discharge ED (Routine); Ordered 05/29/22 Ordered By: Julissa Torres Discharge Diet: Advance as tolerated Discharge Activity: Increase activity as tolerated Patient Instructions: Acute Cough (ED), COVID-19 (Coronavirus Disease 2019) (ED) Activity Restrictions/Additional Instructions: Come back to the emergency room if your symptoms worsen, have any shortness of breath, fever/chills, dehydration, inability tolerate food or drinks, any difficulty breathing, or any new or concerning complaints. Coding Level of Care Code ED Cd Mixer Helper for Ernestog Fwd Exam Comprehensive
[2022-05-29] MEDS: acetaminophen 500 mg Tablet PO (13:56)
[2022-05-29 14:10] VITALS: O2SAT 100
[2022-05-29 14:12] VITALS: BP 112/73; PULSE 116; RESP 18; O2SAT 100
--- NOTE | 2022-05-29 14:27 | CT_ITS ---
WS: [id number] CT angio chest PE protcl [id number] REASON FOR EXAM: severe chest pain, tachycardia TECHNIQUE: Coronal and sagittal 2-D and MIP reformations. IV CONTRAST ADMINISTERED: Omnipaque 350 64 mL. TOTAL EXAM DLP: 327.[address] scans at [facility] use at least one of these dose optimization techniques: automat ed exposure control; mA and/or kV adjustment per patient size (includes targeted exams where dose is matched to clinical indication); or iterative reconstruction. FINDINGS: No pulmonary emboli. Normal thoracic aorta. No mediastinal or hilar mass. No significant adenopathy. No lung nodule or lung mass. No infiltrate. No pleural abnormality. No focal abnormality of the bony thorax. CT/CT angio chest PE protcl [id number] IMPRESSION: No acute chest abnormality.
[2022-05-29 14:51] LABS: Basophils % 0.3 %; Eosinophils % 1.1 %; Hematocrit 34.9 % (37.0-47.0); Lymphocytes # 0.3 10^3/uL (0.8-4.8); Lymphocytes % 9.2 %; Mean Corpuscular HGB Conc 31.5 g/dL (30.0-36.0); Mean Corpuscular Hemoglobin 28.6 pg (28.0-34.0); Mean Corpuscular Volume 90.9 fl (81-99); Monocytes # 0.4 10^3/uL (0.2-0.9); Monocytes % 10.6 %; Neutrophils % 78.5 %; Nucleated Red Blood Cells % 0 %; Platelet Count 217 10^3/cmm (130-400); Red Blood Count 3.84 10^6/uL (4.1-5.3); Red Cell Distribution Width 12.3 % (12.1-15.1); White Blood Count 3.7 10^3/uL (4.0-10.0)
[2022-05-29 15:13] LABS: Blood Urea Nitrogen 8 mg/dL (6-20); Calcium 8.8 mg/dL (8.5-10.5); Carbon Dioxide 22 mmol/L (22-29); Chloride 101 mmol/L (98-107); Glomerular Filtration Rate 113.1 mL/min (90-130); Glucose 93 mg/dL (65-115); Osmolality Calculated 276 mOsm/kg (285-295); Sodium 134 mmol/L (136-145)
[2022-05-29 15:14] LABS: Anion Gap 14.8 (5-19); Potassium 3.8 mmol/L (3.5-5.1)
[2022-05-29] MEDS: iohexol 350 mg/mL 100 mL Btl IV (15:16)
[2022-05-29 16:04] LABS: Adenovirus Not Detected (NOT DETECT); Chlamydia Pneumoniae Not Detected (NOT DETECT); Coronavirus 229E,HKU1,NL63,OC4 Not Detected (NOT DETECT); Human Metapneumovirus Not Detected (NOT DETECT); Human Rhinovirus/Enterovirus Not Detected (NOT DETECT); Influenza A Not Detected (NOT DETECT); Influenza A H1 Not Detected (NOT DETECT); Influenza A H1-2009 Not Detected (NOT DETECT); Influenza A H3 Not Detected (NOT DETECT); Influenza B Not Detected (NOT DETECT); Mycoplasma Pneumoniae Not Detected (NOT DETECT); Parainfluenza Virus Type 1 Not Detected (NOT DETECT); Parainfluenza Virus Type 2 Not Detected (NOT DETECT); Parainfluenza Virus Type 3 Not Detected (NOT DETECT); Parainfluenza Virus Type 4 Not Detected (NOT DETECT); Respiratory Syncytial Virus A Not Detected (NOT DETECT); Respiratory Syncytial Virus B Not Detected (NOT DETECT); SARS-COV-2 Detected (NOT DETECT)
[2022-05-29 16:07] VITALS: BP 108/64; RESP 17; O2SAT 97
[2022-05-29 16:11] LABS: Influenza A Not Detected (NOT DETECT); Influenza A H1 Not Detected (NOT DETECT); Influenza A H1-2009 Not Detected (NOT DETECT); Influenza A H3 Not Detected (NOT DETECT); Influenza B Not Detected (NOT DETECT); Results from Genmark
[2022-05-29 17:00] VITALS: BP 108/71; PULSE 99; RESP 18; O2SAT 100
== END 2022-05-29 17:02 | disposition home or self-care (01) ==
PROVIDERS: Emergency Provider Emergency Medicine
DX: U07.1 COVID-19 (principal); R06.00 Dyspnea, unspecified; R50.9 Fever, unspecified; R53.1 Weakness; R05.9 Cough, unspecified
CPT/HCPCS: 71045; 71275; 80048; 85025; 87631; 87635; 93005; 99285; Q9967

== ENCOUNTER → 2022-07-22 15:14 | Outpatient (BNVA) | payer OTHER, SELFPAY | PROVIDERS: Visit Provider Family Medicine | DX: F43.22 Adjustment disorder with anxiety (principal); J45.21 Mild intermittent asthma with (acute) exacerbation; R63.5 Abnormal weight gain | CPT/HCPCS: 80053; 84439; 84443; 85025 ==

== ENCOUNTER 2022-09-21 11:07 | Emergency (ER) | payer OTHER, SELFPAY ==
--- NOTE | 2022-09-21 11:16 | ECG_ITS ---
[facility] Test Date: 2022-09-21 Pat Name: Zach Bcoanegra Department: Room: Gender: Female Head Of Design: : 1985 Requested By: Doyle Perez Order Number: [id number] Charisse MD: Petra Perry M.D. Measurements Intervals [place] Rate: 82 P: 54 OK: 153 QRS: 79 QRSD: 105 T: 61 QT: 356 QTc: 418 Interpretive Statements SINUS RHYTHM WITH SINUS ARRHYTHMIA Compared to ECG 05/29/2022 13:16:55 Sinus tachycardia no longer present ST (T wave) deviation no longer present Electronically Signed On 09-21-2022 20:29:20 EAP CONSULTANT by Petra Perry M.D. [email or web address] [facility] hospitalCornerstone OnDemand/store/NU/[id number] f
[2022-09-21 11:18] VITALS: BP 124/89; PULSE 86; RESP 14; TEMP 36.7; BMI 34.0
--- NOTE | 2022-09-21 11:43 | XRR_ITS ---
PROCEDURE INFORMATION: Exam: XR Chest Exam date and time: 09/21/2022 11:58 AM Age: 37 years old Clinical indication: Cough and dyspnea; Additional info: Dyspnea/cough TECHNIQUE: Imaging protocol: Radiologic exam of the chest. Views: 1 view. COMPARISON: CR XR chest 1V portable [id number] 05/29/2022 1:38 PM FINDINGS: Lungs: Unremarkable. No consolidation. Pleural spaces: Unremarkable. No pleural effusion. No pneumothorax. Heart/Mediastinum: Unremarkable. No cardiomegaly. Bones/joints: Unremarkable for age. XR/XR chest 1V portable [id number] IMPRESSION: Negative chest
--- NOTE | 2022-09-21 12:09 | ED_ITS ---
HPI - Chest Pain General: Chief Complaint: Chest Pain Stated Complaint: chest pain Time Seen by Provider: 09/21/22 11:34 Source: patient Mode of arrival: ambulatory History of Present Illness: 37-year-old female who presents to the emergency room complaining of chest pain shortness of breath nausea and lightheadedness denies any other symptoms. No fever sweats chills no productive cough she has not noticed anything that makes her symptoms better or worse she has no history of any arrhythmias or heart disease. She does have a history of asthma she used her nebulizer a few days ago when she had some symptoms but it did not really seem to help any. MD complaint: chest pain Onset (ago): minute(s) Timing of current episode: episodic Onset: during rest Pain location: left chest Pain radiation: abdomen Severity: mild Quality: aching Relieving factors: nothing Exacerbating factors: nothing Associated symptoms: Reports dyspnea and nausea; Deny abdominal pain, diaphoresis, fever(s), leg edema, palpitations, sense of impending doom, syncope or vomiting Treatment prior to arrival: none Review of Systems Const: Denies: fever(s), chills, fatigue, malaise or diaphoresis ENMT: Denies: throat pain, ear or mastoid pain, nasal discharge or nasal congestion Card: Reports: chest pain; Denies: palpitations, irregular heart rhythm, edema or syncope Resp: Reports: dyspnea GI: Reports: nausea; Denies: abdominal pain or vomiting : Denies: flank pain, difficulty voiding, dysuria, urinary frequency or urinary urgency Skin/Breast: Denies: rash or pruritus [facility] ED PFSH: Medical History (Updated 09/29/22 @ 00:00 by ARELI Oreilly) Anxiety Asthma Depression Vertigo Surgical History History of hysterectomy History of tubal ligation Family History Other Cancer Social History Smoking and tobacco status: never smoked Alcohol intake: current Alcohol intake frequency: holidays/special occasions only Female Reproductive History: Spontaneous abortions: No Physical Exam Const: GENERAL APPEARANCE: cooperative and comfortable ORIENTATION/CONSCIOUSNESS: Yes awake, Yes oriented to person, Yes oriented to place and Yes oriented to time HENMT: COMMON NORMALS: normocephalic, atraumatic and hearing grossly normal bilaterally HEAD & SCALP: normocephalic and atraumatic Resp: COMMON NORMALS: normal respiratory effort, No retractions, No use of ac cessory muscles and clear to auscultation bilaterally AUSCULTATION: clear to auscultation bilaterally Cardio: COMMON NORMALS: regular rate, regular rhythm and No murmurs present (Cardio) RATE: regular rate RHYTHM: regular rhythm GI: COMMON NORMALS: Soft to palpation and No hepatosplenomegaly present AUSCULTATION: Yes normoactive bowel sounds PALPATION: Yes Soft to palpation, No Tenderness to palpation present (GI), No Guarding due to palpation present ( GI) and Yes No hepatosplenomegaly present Extremity: COMMON NORMALS: normal to inspection, capillary refill normal, no clubbing, cyanosis or edema, no calf tenderness and no pedal edema Neuro: SENSORIUM/ORIENTATION: Yes oriented to person, Yes oriented to place and Yes oriented to time Skin: COMMON NORMALS: no rashes or lesions noted GENERAL SKIN EXAM: no rashes or lesions noted Course Vital Signs: Vital signs: Vital Signs Temperature 98.0 F 09/21/22 11:18 Pulse Rate 79 09/21/22 16:24 Respiratory Rate 16 09/21/22 16:24 Blood Pressure 122/79 09/21/22 16:24 Pulse Oximetry 100 09/21/22 16:24 Oxygen Delivery Me thod 09/21/22 15:46 MDM - Chest Pain Medical Decision Making Labs and imaging reviewed on the chart. Chest x-ray does not show any acute changes. Will discharge home with steroids albuterol as needed for symptoms. F ollow-up with her primary care if persist may need inhaled corticosteroid for period of time. Medical Records I reviewed the patient's medical records. Lab Data I reviewed the patient's lab results. 09/21/22 12:36 09/21/22 12:36 Radiology Impressions Chest X-Ray 09/21/22 11:43 IMPRESSION: Negative chest Laboratory Results WBC 5.8 10^3/uL (4.0-10.0) 09/21/22 12:36 RBC 4.48 10^6/uL (4.1-5.3) 09/21/22 12:36 Hgb 12.4 g/dL (11.5-15.3) 09/21/22 12:36 Hct 38.7 % (37.0-47.0) 09/21/22 12:36 MCV 86.4 fl (81-99) 09/21/22 12:36 MCH 27.7 pg (28.0-34.0) L 09/21/22 12:36 MCHC 32.0 g/dL (30.0-36.0) 09/21/22 12:36 RDW 12.6 % (12.1-15.1) 09/21/22 12:36 Plt Count 296 10^3/cmm (130-400) 09/21/22 12:36 MPV 9.2 fL (7.4-10.4) 09/21/22 12:36 Neut % (Auto) 58.8 % 09/21/22 12:36 Lymph % (Auto) 30.9 % 09/21/22 12:36 [place] % (Auto) 8.1 % 09/21/22 12:36 Eos % (Auto) 1.7 % 09/21/22 12:36 Baso % (Auto) 0.3 % 09/21/22 12:36 Neut # (Auto) 3.42 10^3/uL (1.8-7.7) 09/21/22 12:36 Lymph # (Auto) 1.8 10^3/uL (0.8-4.8) 09/21/22 12:36 [place] # (Auto) 0.5 10^3/uL (0.2-0.9) 09/21/22 12:36 Eos # (Auto) 0.1 10^3/uL (0.0-0.8) 09/21/22 12:36 Baso # (Auto) 0.0 10^3/uL (0.0-0.1) 09/21/22 12:36 Nucleated RBC % (auto) 0 % 09/21/22 12:36 Nucleated RBCs # 0.0 /100WBC 09/21/22 12:36 Sodium 135 mmol/L (136-145) L 09/21/22 12:36 Potassium 4.0 mmol/L (3.5-5.1) 09/21/22 12:36 Chloride 101 mmol/L (98-107) 09/21/22 12:36 Carbon Dioxide 25 mmol/L (22-29) 09/21/22 12:36 Anion Gap 13.0 (5-19) 09/21/22 12:36 BUN 11 mg/dL (6-20) 09/21/22 12:36 Creatinine 0.5 mg/dL (0.5-0.9) 09/21/22 12:36 GFR Calculation 139.6 mL/min (90-130) H 09/21/22 12:36 Glucose 81 mg/dL (65-115) 09/21/22 12:36 Calculated Osmolality 278 mOsm/kg (285-295) L 09/21/22 12:36 Calcium 9.0 mg/dL (8.5-10.5) 09/21/22 12:36 Troponin T Gen 5 ng/L 6 ng/L (0-10) 09/21/22 12:36 Discharge Plan Discharge Patient Disposition: Home Clinical Impression: Acute viral bronchitis, Chest pain, pleuritic Condition: Stable Prescriptions: New Medrol (Viet) 4 mg tablets,dose pack See Rx Instructions .ROUTE .COMPLEX Qty: 21 0RF Rx Instructions: orally per package directions No Action ketoconazole 2 % cream 1 applic topical BID Qty: 30 1RF celecoxib [Celebrex] 100 mg capsule 100 mg PO BID PRN (Reason: pain) Qty: 60 3RF buspirone 5 mg tablet 5 mg PO TID PRN (Reason: as needed for anxiety attacks ) Qty: 30 3RF albuterol sulfate 0.63 mg/3 mL solution for nebulization See Rx Instructions .ROUTE .COMPLEX Qty: 90 2RF Dose Instruction: INHALE 1 VIAL USING NEBULIZER FOUR TIMES DAILY FOR 30 DAYS NEEDED FOR SHORTNESS OF BREATH OR WHEEZING Rx Instructions: INHALE 1 VIAL USING NEBULIZER FOUR TIMES DAILY FOR 30 DAYS NEEDED FOR SH ORTNESS OF BREATH OR WHEEZING albuterol sulfate 90 mcg/actuation HFA aerosol inhaler See Rx Instructions .ROUTE .COMPLEX Qty: 8.5 2RF Dose Instruction: INHALE 2 PUFFS EVERY SIX HOURS NEEDED SHORTNESS OF BREATH AND WHEEZING Rx Instructions: INHALE 2 PUFFS EVERY SIX HOURS NEEDED SHORTNESS OF BREATH AND WHEEZING Discharge Orders: Discharge ED (Routine); Ordered 09/21/22 Ordered By: Doyle Aguila Referrals: Gonzalo Figueroa, DO [Primary Care Provider] - Discharge Diet: Usual diet Discharge Activity: Increase activity as tolerated Patient Instructions: Opioid Safety, Pain Management Activity Restrictions/Additional Instructions: You are seen today for chest pain. Your EKG was normal your lab work was normal. Your description of symptoms sounds is noncardiac. We will put you on prednisone taper. Continue to use your albuterol as needed return if you have any worsening symptoms. Coding Level of Care Code ED Integrated Logistics Support Manager for Chg Fwd Exam Detailed
[2022-09-21 12:45] LABS: Basophils % 0.3 %; Eosinophils # 0.1 10^3/uL (0.0-0.8); Eosinophils % 1.7 %; Hematocrit 38.7 % (37.0-47.0); Hemoglobin 12.4 g/dL (11.5-15.3); Lymphocytes # 1.8 10^3/uL (0.8-4.8); Lymphocytes % 30.9 %; Mean Corpuscular Hemoglobin 27.7 pg (28.0-34.0); Mean Corpuscular Volume 86.4 fl (81-99); Mean Platelet Volume 9.2 fL (7.4-10.4); Monocytes # 0.5 10^3/uL (0.2-0.9); Monocytes % 8.1 %; Neutrophils # 3.42 10^3/uL (1.8-7.7); Neutrophils % 58.8 %; Nucleated Red Blood Cells % 0 %; Platelet Count 296 10^3/cmm (130-400); Red Blood Count 4.48 10^6/uL (4.1-5.3); Red Cell Distribution Width 12.6 % (12.1-15.1); White Blood Count 5.8 10^3/uL (4.0-10.0)
[2022-09-21 13:02] LABS: Blood Urea Nitrogen 11 mg/dL (6-20); Carbon Dioxide 25 mmol/L (22-29); Chloride 101 mmol/L (98-107); Creatinine Clr Calc Pharmacy 150.6208; Glomerular Filtration Rate 139.6 mL/min (90-130); Glucose 81 mg/dL (65-115); Osmolality Calculated 278 mOsm/kg (285-295); Sodium 135 mmol/L (136-145)
[2022-09-21 13:27] VITALS: BP 105/62; PULSE 81; RESP 16; O2SAT 100
[2022-09-21 14:58] LABS: Troponin T (5th) Once 6 ng/L (0-10)
--- NOTE | 2022-09-21 14:59 | ECG_ITS ---
[facility] Test Date: 2022-09-21 Pat Name: Zach Bocanegra Department: Room: Gender: Female Wood Crafter: : 1985 Requested By: Doyle Perez Order Number: [id number] Charisse MD: Petra Perry M.D. Measurements Intervals [place] Rate: 76 P: 56 SC: 164 QRS: 82 QRSD: 104 T: 62 QT: 393 QTc: 444 Interpretive Statements SINUS RHYTHM Compared to ECG 09/21/2022 11:16:06 Sinus arrhythmia no longer present Electronically Signed On 09-21-2022 20:32:26 RELIEF MANAGER by Petra Perry M.D. [email or web address] regional hospitalSolectria Renewablesmetrohealth main campus medical centerTriton Systems, Inc/store/OM/[id number]/ecg/[id number]
[2022-09-21] MEDS: sodium chloride 0.9% 1,000 ML 999 ML IV (15:43)
[2022-09-21 15:46] VITALS: BP 122/79; PULSE 79; RESP 16; O2SAT 100
[2022-09-21 16:24] VITALS: BP 122/79; PULSE 79; RESP 16; O2SAT 100
== END 2022-09-21 16:26 | disposition home or self-care (01) ==
PROVIDERS: Emergency Provider Family Medicine; PCP Family Medicine
DX: J20.8 Acute bronchitis due to other specified organisms (principal); R09.1 Pleurisy
CPT/HCPCS: 71045; 80048; 84484; 85025; 93005; 96360; 99285; J7030

== ENCOUNTER 2023-05-31 13:43 | Outpatient (CLI) | payer OTHER, SELFPAY ==
--- NOTE | 2023-05-31 13:59 | XR_ITS ---
WS: [id number] XR hip BI 3-4V wo/w pel [id number] REASON FOR EXAM: Right hip pain FINDINGS: RIGHT HIP: No fracture or focal bone lesion. Joint space is intact and well preserved. No soft tissue abnormality. LEFT HIP: No fracture or focal bone lesion. Joint spaces intact and well preserved. No soft tissue abnormality. IMPRESSION: No significant abnormality of the right or left hip.
== END 2023-05-31 13:44 | disposition home or self-care (01) ==
PROVIDERS: PCP Family Medicine; Visit Provider Family Medicine
DX: M25.551 Pain in right hip (principal)
CPT/HCPCS: 73522

== ENCOUNTER 2023-08-04 01:27 | Emergency (ER) | payer OTHER, SELFPAY ==
[2023-08-04 01:34] VITALS: BP 124/84; PULSE 117; RESP 14; TEMP 36.8; O2SAT 100
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
[2023-08-04 01:51] VITALS: BP 129/78; PULSE 112; RESP 18; O2SAT 99
[2023-08-04] MEDS: acetaminophen 500 mg Tablet 1000 MG PO (02:08)
[2023-08-04] MEDS: ondansetron 4 MG Tablet PO (02:08)
[2023-08-04 03:27] VITALS: BP 106/71; PULSE 89; O2SAT 99
== END 2023-08-04 03:30 | disposition home or self-care (01) ==
PROVIDERS: Emergency Provider Emergency Medicine; PCP Family Medicine
DX: S00.83XA Contusion of other part of head, initial encounter (principal); Y04.2XXA Assault by strike against or bumped into by another person, initial encounter
CPT/HCPCS: 70450; 99284; Q0162

== ENCOUNTER 2023-11-11 22:20 | Emergency (ER) | payer OTHER, SELFPAY ==
[2023-11-11 22:28] VITALS: BP 123/73; PULSE 120; RESP 20; TEMP 36.7; O2SAT 98
--- NOTE | 2023-11-11 22:40 | PC.NURSE ---
PD and RD at bedside
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
[2023-11-11] MEDS: acetaminophen 500 mg Tablet 1000 MG PO (23:19)
--- NOTE | 2023-11-12 00:04 | PC.NURSE ---
pt came back to sign d/c papers 117/85 o2 100%RA HR130 temp 98.1 ERP aware of documented HR
== END 2023-11-11 23:55 | disposition home or self-care (01) ==
PROVIDERS: Emergency Provider Nurse Practitioner Family; PCP Family Medicine
DX: S63.91XA Sprain of unspecified part of right wrist and hand, initial encounter (principal); S09.90XA Unspecified injury of head, initial encounter; Y04.2XXA Assault by strike against or bumped into by another person, initial encounter; Y92.239 Unspecified place in hospital as the place of occurrence of the external cause; Y99.0 Civilian activity done for income or pay
CPT/HCPCS: 70450; 73130; 99284

== ENCOUNTER 2023-11-24 07:11 | Outpatient (CLI) | payer OTHER, SELFPAY ==
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
== END 2023-11-24 07:12 | disposition home or self-care (01) ==
LOC: RAD 07:12
PROVIDERS: PCP Family Medicine; Visit Provider Family Medicine
DX: M54.2 Cervicalgia (principal); M54.12 Radiculopathy, cervical region
CPT/HCPCS: 72040

== ENCOUNTER 2023-12-06 13:23 | Outpatient (RCR) | payer OTHER, SELFPAY | END 2023-12-12 23:59 | disposition home or self-care (01) | LOC: SPT 13:23 | PROVIDERS: PCP Family Medicine; Visit Provider Family Medicine | DX: M54.12 Radiculopathy, cervical region (principal); S06.0X0D Concussion without loss of consciousness, subsequent encounter; X58.XXXD Exposure to other specified factors, subsequent encounter | CPT/HCPCS: 97110; 97140; 97161; G0283 ==

== ENCOUNTER 2023-12-14 08:23 | Outpatient (RCR) | payer OTHER, SELFPAY | END 2024-01-11 23:59 | disposition home or self-care (01) | LOC: SPT 08:23 | PROVIDERS: PCP Family Medicine; Visit Provider Family Medicine | DX: M54.12 Radiculopathy, cervical region (principal); S06.0X0D Concussion without loss of consciousness, subsequent encounter; X58.XXXD Exposure to other specified factors, subsequent encounter | CPT/HCPCS: 97110; 97140; G0283 ==

== ENCOUNTER 2023-12-29 16:07 | Outpatient (CLI) | payer OTHER, SELFPAY ==
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
== END 2023-12-29 16:08 | disposition home or self-care (01) ==
LOC: RAD 16:08
PROVIDERS: PCP Family Medicine; Visit Provider Family Medicine
DX: M54.12 Radiculopathy, cervical region (principal); S09.90XD Unspecified injury of head, subsequent encounter; X58.XXXD Exposure to other specified factors, subsequent encounter; M50.21 Other cervical disc displacement, high cervical region; M48.02 Spinal stenosis, cervical region
CPT/HCPCS: 72141

== ENCOUNTER 2024-01-12 06:00 | Outpatient (RCR) | payer OTHER, SELFPAY | END 2024-02-11 23:59 | disposition home or self-care (01) | LOC: SPT 06:00 | PROVIDERS: PCP Family Medicine; Visit Provider Family Medicine | DX: M54.12 Radiculopathy, cervical region (principal); S06.0X0D Concussion without loss of consciousness, subsequent encounter; X58.XXXD Exposure to other specified factors, subsequent encounter | CPT/HCPCS: 97110; 97140; G0283 ==

== ENCOUNTER 2024-02-15 11:38 | Outpatient (CLI) | payer OTHER, SELFPAY ==
[2024-02-15 13:08] LABS: Hematocrit 39.7 % (36-47); Mean Corpuscular HGB Conc 32.5 g/dL (30-55); Mean Corpuscular Hemoglobin 29.3 pg (27-33); Mean Platelet Volume 9.2 fL (7.4-10.4); Platelet Count 267 10^3/cmm (157-399); Red Blood Count 4.41 10^6/uL (3.85-5.65); Red Cell Distribution Width 12.3 % (12.1-15.1); White Blood Count 5.12 10^3/uL (3.29-11.43)
[2024-02-15 13:11] LABS: Erythrocyte Sedimentation Rate 12 mm/hr (0-15)
[2024-02-15 13:49] LABS: Folate Level 4.2 ng/mL (4.8-37.3)
[2024-02-15 15:36] LABS: 25 Hydroxy Vitamin D 21 ng/mL (30-100); Alanine Aminotransferase 23 U/L (0-33); Albumin Level 4.6 g/dL (3.5-5.2); Alkaline Phosphatase 84 U/L (35-105); Anion Gap 16.1 (5-19); Aspartate Amino Transferase 21 U/L (0-32); Blood Urea Nitrogen 15 mg/dL (6-20); C Reactive Protein 4.7 mg/L (0.0-4.9); Carbon Dioxide 24 mmol/L (22-29); Chloride 100 mmol/L (98-107); Chol HDL Ratio 2.71 mg/dL (0.0-4.40); Cholesterol 184 mg/dL (0-200); Globulin 2.9 g/dL (1.3-4.6); Glomerular Filtration Rate 112.5 mL/min (90-130); Glucose 79 mg/dL (65-115); HDL Cholesterol 68 mg/dL (60-100); LDL Cholesterol Calculated 101 mg/dL (50-129); LDL HDL Ratio 1.49 RATIO (0.00-3.22); Magnesium 2.3 mg/dL (1.7-2.3); Osmolality Calculated 282 mOsm/kg (285-295); Potassium 4.1 mmol/L (3.5-5.1); Sodium 136 mmol/L (136-145); Thyroid Stimulating Hormone 1.69 uIU/mL (0.27-4.20); Total Bilirubin 0.3 mg/dL (0.15-1.2); Total Protein 7.5 g/dL (6.6-8.7); Triglycerides 73 mg/dL (0-150); Vitamin B12 423 pg/mL (232-1245)
== END 2024-02-15 11:39 | disposition home or self-care (01) ==
LOC: LAB 11:42
PROVIDERS: PCP Family Medicine; Visit Provider Family Medicine
DX: M54.12 Radiculopathy, cervical region (principal); E66.9 Obesity, unspecified; E83.42 Hypomagnesemia; R79.89 Other specified abnormal findings of blood chemistry; E55.9 Vitamin D deficiency, unspecified
CPT/HCPCS: 36415; 80053; 80061; 82306; 82607; 82746; 83735; 84443; 85027; 85651; 86140

== ENCOUNTER 2024-03-16 00:53 | Emergency (ER) | payer OTHER, SELFPAY ==
[2024-03-16 00:59] VITALS: BP 128/86; PULSE 88; RESP 15; TEMP 36.6; O2SAT 99; BMI 31.1
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
[2024-03-16] MEDS: orphenadrine 30 mg/mL Inj 2 mL 60 MG IM (01:18)
[2024-03-16] MEDS: ketorolac 60 mg/2 mL INJ IM (01:18)
[2024-03-16] MEDS: morphine 4 mg/mL SDV 1 mL IM (02:14)
[2024-03-16] MEDS: promethazine 25 mg/mL SDV 1 mL IM (02:14)
[2024-03-16 02:25] VITALS: BP 117/82; PULSE 78; RESP 18; O2SAT 98
== END 2024-03-16 02:26 | disposition home or self-care (01) ==
PROVIDERS: Emergency Provider Emergency Medicine; PCP Family Medicine
DX: M79.18 Myalgia, other site (principal)
CPT/HCPCS: 96372; 99284; J1885; J2270; J2360; J2550

== ENCOUNTER 2024-03-22 09:50 | Outpatient (CLI) | payer OTHER, SELFPAY ==
--- NOTE | 2024-03-23 14:14 | MR_ITS ---
WS: [id number] MRI CERVICAL SPINE NONCONTRAST TECHNIQUE: Sagittal T1, T2 and STIR imaging. Axial T2, gradient, and fiesta imaging. CLINICAL INFORMATION: SPINAL STENOSIS,CERVICAL REGION/RADICULOPATHY,CSPINE REGION COMPARISON: MRI 12/29/2023 FINDINGS: Straightening with slight reversal normal cervical lordosis. Mild disc bulging C3-C5 with small protr usions. Slight indentation of the cervical cord. Small central protrusion at C3-4 is progressed lucie red to previous. Disc protrusions at C4-C5 and C5-C6 are similar in appearance. C2-C3: Normal. C3-C4: Shallow central protrusion. Slight indentation of the cervical cord. Mild LEFT and no signific ant RIGHT foraminal narrowing. Mild facet arthropathy. C4-C5: LEFT paracentral disc osteophyte protrusion with slight indentation of the cervical cord. Mild central canal stenosis. Mild facet arthropathy. Mild LEFT and no significant RIGHT foraminal narrowi ng. C5-C6: Shallow RIGHT paracentral protrusion with slight indentation on the cervical cord. Mild centra l canal stenosis. Mild LEFT greater than RIGHT foraminal narrowing. Mild facet arthropathy. C6-C7: Mild LEFT and no significant RIGHT foraminal narrowing. Spinal canal is patent. C7-T1: Spinal canal and foramen are patent. Visualized brain stem structures: Normal. Prevertebral soft tissues: Normal. MR/MR cervical spin wo con* [id number] IMPRESSION: 1. Straightening with slight reversal normal cervical lordosis. Cord signal is normal. 2. Mild LEFT C4-C5 C5-C6 and C6-C7 foraminal narrowing. 3. Small disc protrusions C3-C4 C4-C5 and C5-C6 with slight indentation on the cervical cord and mild central canal stenosis worse at C5-C6. 4. RIGHT paracentral protrusion C5-C6 with slight indentation of the cervical cord and mild central canal stenosis similar to previous. 5. Central C3-4 disc protrusion is progressed compared to previous.
== END 2024-03-23 14:03 | disposition home or self-care (01) ==
LOC: RAD 03-23 14:08
PROVIDERS: PCP Family Medicine; Visit Provider Physical Medicine & Rehabilitation
DX: M54.12 Radiculopathy, cervical region (principal); M48.02 Spinal stenosis, cervical region; M50.21 Other cervical disc displacement, high cervical region; M47.812 Spondylosis without myelopathy or radiculopathy, cervical region; M25.78 Osteophyte, vertebrae; M50.222 Other cervical disc displacement at C5-C6 level
CPT/HCPCS: 72141

== ENCOUNTER → 2024-10-05 15:42 | Outpatient (BNVA) | payer OTHER, SELFPAY | PROVIDERS: PCP Family Medicine; Visit Provider Family Medicine | DX: R50.9 Fever, unspecified (principal); J02.9 Acute pharyngitis, unspecified | CPT/HCPCS: 87071; 87400; 87420; 87426; 87880 ==

== ENCOUNTER 2024-12-19 12:28 | Outpatient (CLI) | payer OTHER, SELFPAY ==
[2024-12-19 13:51] LABS: Albumin Level 4.2 g/dL (3.5-5.2); Alkaline Phosphatase 74 U/L (35-105); Globulin 3.2 g/dL (1.3-4.6); Total Bilirubin 0.2 mg/dL (0.15-1.2); Total Protein 7.4 g/dL (6.6-8.7)
[2024-12-19 14:03] LABS: Alanine Aminotransferase 15 U/L (0-33); Aspartate Amino Transferase 23 U/L (0-32)
== END 2024-12-19 12:29 | disposition home or self-care (01) ==
PROVIDERS: PCP Family Medicine; Visit Provider Student in an Organized Health Care Education/Training Program
DX: Z51.81 Encounter for therapeutic drug level monitoring (principal)
CPT/HCPCS: 36415; 80076

== ENCOUNTER → 2025-04-04 07:00 | Outpatient (BNVA) | payer OTHER, SELFPAY | PROVIDERS: PCP Family Medicine; Visit Provider Family Medicine | DX: M54.12 Radiculopathy, cervical region (principal); M50.00 Cervical disc disorder with myelopathy, unspecified cervical region; F41.9 Anxiety disorder, unspecified; F43.10 Post-traumatic stress disorder, unspecified; R79.89 Other specified abnormal findings of blood chemistry | CPT/HCPCS: 80053; 80061; 82607; 84443; 85025; 85651; 86140 ==

== ENCOUNTER 2025-05-24 07:43 | Outpatient (CLI) | payer OTHER, SELFPAY ==
--- NOTE | 2025-05-24 08:00 | MR_ITS ---
WS: [id number] MRI CERVICAL SPINE NONCONTRAST HISTORY: M54.12 - Radiculopathy, cervical region COMPARISON: 03/23/2024 Technique: Multiplanar, multisequence noncontrast imaging of the cervical spine. STIR sequence is significantly compromised by motion. Straightening of the normal cervical lordosis. Disc bulging with small central protrusions at C3-4, C4-5 and C5-6. Signal within the cervical cord is normal. Visualized posterior fossa is unremarkable. Craniocervical junction, C1 and C2 relationship, odontoid process and soft tissues are normal. C2-C3: Normal. C3-C4: Unchanged central disc protrusion causing slight effacement of the ventral CSF and contact on the cord. No significant foraminal stenosis. Mild facet arthritis. C4-C5: Small LEFT paracentral disc osteophyte complex with slight indentation of the cervical cord. Mild central stenosis. Mild bilateral facet arthritis. Very mild LEFT foraminal stenosis. No change. C5-C6: RIGHT paracentral disc protrusion contacting the ventral cord does appear slightly smaller in size as compared to the prior study. Very slight central stenosis. Mild foraminal stenosis. Mild facet arthritis. C6-C7: Very small central disc protrusion. No foraminal stenosis. C7-T1: Normal. Paraspinal soft tissue are normal. MR/MR cervical spin wo con* [id number] IMPRESSION: 1. Degenerative facet joint arthritis and disc osteophyte complexes as describ ed above. No progression since 03/23/2014. 2. Slight improvement in the small RIGHT paracentral disc osteophyte at C5-6. Mild to moderate central and foraminal stenosis. There is still very slight dis c contact on the ventral cord. 3. C3-4: Central disc protrusion with mild central stenosis. Mild contact on t he ventral cord by disc disease. 4. C4-5: Small LEFT paracentral disc osteophyte complex resulting in mild cent ral stenosis. No change in the mild LEFT foraminal stenosis. 5. No acute fractures or marrow edema.
== END 2025-05-24 07:44 | disposition home or self-care (01) ==
LOC: RAD 07:45
PROVIDERS: PCP Family Medicine; Visit Provider Family Medicine
DX: M54.12 Radiculopathy, cervical region (principal)
CPT/HCPCS: 72141

== ENCOUNTER → 2025-06-05 13:03 | Outpatient (BNVA) | payer OTHER, SELFPAY | PROVIDERS: PCP Family Medicine; Visit Provider Orthopaedic Surgery | DX: M48.02 Spinal stenosis, cervical region (principal); M54.12 Radiculopathy, cervical region; M54.2 Cervicalgia; Z01.818 Encounter for other preprocedural examination | CPT/HCPCS: 36415; 72040; 81001; 85025 ==

== ENCOUNTER 2025-06-06 14:50 | Outpatient (CLI) | payer OTHER, SELFPAY ==
[2025-06-06 15:07] LABS: Hematocrit 35.7 % (36-47); Hemoglobin 11.90 g/dL (11.27-16.99); Mean Corpuscular HGB Conc 33.3 g/dL (30-55); Mean Corpuscular Hemoglobin 29.0 pg (27-33); Mean Corpuscular Volume 87.1 fl (85-98); Nucleated Red Blood Cells % 0 %; Platelet Count 309 10^3/cmm (157-399); Red Blood Count 4.10 10^6/uL (3.85-5.65); White Blood Count 4.93 10^3/uL (3.29-11.43)
[2025-06-06 15:33] LABS: Alanine Aminotransferase 13 U/L (0-33); Albumin Level 4.5 g/dL (3.5-5.2); Alkaline Phosphatase 69 U/L (35-105); Anion Gap 13.8 (5-19); Aspartate Amino Transferase 15 U/L (0-32); Blood Urea Nitrogen 12 mg/dL (6-20); Calcium 8.9 mg/dL (8.5-10.5); Carbon Dioxide 24 mmol/L (22-29); Chloride 102 mmol/L (98-107); Globulin 3.2 g/dL (1.3-4.6); Glucose 102 mg/dL (65-115); Osmolality Calculated 282 mOsm/kg (285-295); Potassium 3.8 mmol/L (3.5-5.1); Sodium 136 mmol/L (136-145); Total Protein 7.7 g/dL (6.6-8.7)
== END 2025-06-06 14:51 | disposition home or self-care (01) ==
LOC: LAB 14:52
PROVIDERS: PCP Family Medicine; Visit Provider Orthopaedic Surgery
DX: Z01.818 Encounter for other preprocedural examination (principal)
CPT/HCPCS: 36415; 80053; 85025

== ENCOUNTER 2025-06-18 09:34 | Inpatient (IN) | payer OTHER, SELFPAY ==
--- OUTSIDE RECORDS SUMMARY | 2024-07-09 04:00 | XMS_ITS ---
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 Name Role Phone Dr Gonzalo Figueroa DO Primary Care Provider Latosha Cedillo Unavailable Migration, Provider Unavailable Unavailable Allergies Allergen (clinical drug ingredient) Drug/Non Drug Allergy documented on EMR Reaction Allergy Type Onset Date Status escitalopram Lexapro Unknown Drug Allergy Acti ve copper Copper Unknown Drug Allergy Active duloxetine Duloxetine Unknown Drug Allergy Activ e REASON FOR VISIT EMR-Pepe Encounters Encounter Location Date Provider Diagnosis Migrated_Facility 0 0 07/09/2024 Provider Migration Plan Of Treatment No Information Progress Notes * VALERIA MARAVILLADOB: 6 (40 yo F)Acc No.[id number]:07/09/2024 Patient: Russell VALENTINVALERIA Echevarria :1985 A ge:39 Y S ex:Female Address:[address] [place] [address] Subjective: * Chief Complaints: * E MR-Pepe * Allergies: C opper: AllergyDuloxetine: AllergyLexapro: Allergy * * Date:
[2025-06-18] VITALS (20 sets, daily range): BP systolic 76–140; BP diastolic 54–96; PULSE 55–98; RESP 14–24; TEMP 36.5–36.9; O2SAT 95–100; BMI 28.3
--- NOTE | 2025-06-18 06:20 | ANES.PREANE2 ---
Pre-Anesthetic Assessment Height/Weight: Height 5 ft 1 in Preop Diagnosis: Cervical stenosis with radiculopathy and myelopathy Operation Date: 06/18/25 07:00 Proposed Procedures p Anterior Cervical Discectomy & Fusion ACDF(Not Applicable) - Lazaro Avila, DO Was Beta Piter taken within 24 hours: N/A Was Clonidine taken within 24 hours: N/A Social Tobacco and No alcohol Exam alert, oriented x 3, clear to auscultation bilaterally and regular rate & rhythm Airway Submandibular: within normal limits Cervical ROM: within normal limits Mallampati: Class I Dentition: full Anesthetic Plan ASA status: 3 Other: No prior issues with anesthesia NPO since yesterday evening Mild asthma, very occasional inhaler use PTSD/anxiety and depression Current smoker Patient has been taking hydrocodone 10?325 twice daily for the last few years Labs reviewed from 06/02/2025 and acceptable for procedure today hCG not needed, s/p hysterectomy Plan for general anesthetic Medications/Allergies Home Medications ?Medication ?Instructions ?Recorded ?Confirmed ?Last Taken ?Type albuterol sulfate 90 mcg/actuation 2 inh inhalation Q6H PRN shortness 10/12/24 06/15/25 Unknown Rx aerosol inhaler of breath or wheezing #8.5 grams albuterol sulfate 0.63 mg/3 mL See Rx Instructions .Route 01/04/25 06/15/25 Unknown Rx solution for nebulization .COMPLEX #90 mL ondansetron 4 mg disintegrating 4 mg PO Q8H PRN nausea and 02/20/25 06/15/25 Unknown Rx tablet vomiting #20 tabs nebulizer accessories #1 ea 03/13/25 06/05/25 Unknown Rx lidocaine 5 % topical patch See Rx Instructions .Route 05/01/25 06/15/25 Unknown Rx .COMPLEX #30 patches phentermine 37.5 mg capsule 37.5 mg PO DAILY #30 caps 05/02/25 06/15/25 06/04/25 Rx hydrocodone 10 mg-acetaminophen 1 tab PO BID PRN pain 30 days #60 06/01/25 06/15/25 06/15/25 Rx 325 mg tablet tabs buspirone 10 mg tablet 10 mg PO TID 06/15/25 06/15/25 06/08/25 History chlorzoxazone 500 mg tablet 500 mg PO TID 1006/15/25 06/15/25 History ibuprofen 600 mg tablet 600 mg PO Q8H 06/15/25 06/15/25 06/13/25 History Allergies Allergy/AdvReac Type Severity Reaction Status Date / Time copper Allergy ALGY-Rash Verified 06/15/25 11:03 duloxetine Allergy ADR-Agitate Verified 06/05/25 08:55 d escitalopram (From Lexapro) Allergy ADR-Confusi Verified 06/05/25 08:55 on [facility] Anesthesia Medical History Vertigo Asthma Anxiety Depression Surgical History History of tubal ligation History of hysterectomy Family History Other Cancer Social History Smoking and tobacco/nicotine status: never used tobacco/nicotine Female Reproductive History Spontaneous abortions: No
--- NOTE | 2025-06-18 06:26 | W.PM.OPSUD ---
Surgery/Procedure H&P Update DATE OF PROCEDURE: June 18, 2025 DATE H&P PERFORMED: 06/05/25 H&P UPDATE INFORMATION: I have reviewed H&P completed within last 30 days, I have examined patient prior to procedure and No changes to prior documentation PREOP DIAGNOSIS: Cervical stenosis with radiculopathy and myelopathy PLANNED PROCEDURE: Operation Date: 06/18/25 07:00 Proposed Procedures p Anterior Cervical Discectomy & Fusion ACDF(Not Applicable) - Lazaro Avila DO
[2025-06-18] MEDS: ceFAZolin 2,000 mg SDV 2000 MG IVP ×3 (07:00→22:24)
[2025-06-18] MEDS: lidocaine-epi 1% 20 mL INJ 10 ML INJECTION (08:42)
--- NOTE | 2025-06-18 09:31 | P.OP_ITS ---
Operative Report Date of procedure: June 18, 2025 Pre-op diagnosis: Cervical stenosis with radiculopathy and myelopathy Post-op diagnosis: same Procedure done: 1. Anterior diskectomy C 3/4 2. Anterior discectomy C4/5 3. Anterior discectomy C5/6 4. Insertion of cage at C3/4 5. Insertion of cage C4/5 6. Insertion of Cage C5/6 7. Instrumentation with anterior plate from C3-6 8. Use of allograft Surgeon: Lazaro Avila DO Estimated blood loss (mL): 15 Procedure: 1. Anterior diskectomy C 3/4 2. Anterior discectomy C4/5 3. Anterior discectomy C5/6 4. Insertion of cage at C3/4 5. Insertion of cage C4/5 6. Insertion of Cage C5/6 7. Instrumentation with anterior plate from C3-6 8. Use of allograft the patient was taken to the operating room, where he underwent general endotracheal anesthesia without complications. He was then positioned supine on the operating table, and all areas of impingement were well padded. The arms were carefully padded and tucked at his sides. A roll was placed between the shoulder blades.. An x-ray was done to determine the appropriate level for the skin incision. The entire neck was then sterilely prepped and draped in the usual fashion. Neuromonitoring was attached prior to prepping. A transverse skin incision was made and carried down to the platysma muscle. This was then split in line with its fibers. Blunt dissection was carried down medial to the carotid sheath and lateral to the trachea and esophagus until the anterior cervical spine was visualized. A needle was placed into a disc and an x-ray was done to determine its location. The longus colli muscles were then elevated bilaterally with the electrocautery unit. Self-retaining retractors were placed deep to the longus colli muscle. Attention was brought to the C3/4 level that was confirmed on x-ray. A caspar pin was placed into the C3 vertebrae and the C4 vertebrae. The disk space was then distracted. The microscope was then brought in. A radical anterior discectomies were performed at C3/4. This included complete removal of the anterior annulus, nucleus, and posterior annulus. The posterior longitudinal ligament was removed as were the posterior osteophytes. Foraminotomies were then accomplished bilaterally. This was done using a high speed lillian, kerrison rongeurs and curretes Once all of this was accomplished, the curved currette was used to check for any residual compression. The central canal was wide open as were the foramen. A high-speed bur was used to remove the cartilaginous endplates above and below the interspace. Bleeding cancellous bone was exposed. The disc space were measured and appropriate size cage were placed sterilely onto the field. Allograft graft was packed into the cages. The cage was then placed and there was good juxtaposition against the bleeding decorticated surfaces and good distraction of each interspace. Attention was brought to the next interspace. The Rousseau pins were removed. Bone wax was used to prevent any bleeding from occurring at the pin sites. Attention was brought to the C4/5 level that was confirmed on x-ray. A caspar pin was placed into the C4 vertebrae and the C5 vertebrae. The disk space was then distracted. The microscope was then brought in. A radical anterior discectomies were performed at C4/5. This included complete removal of the anterior annulus, nucleus, and posterior annulus. The posterior longitudinal ligament was removed as were the posterior osteophytes. Foraminotomies were then accomplished bilaterally. This was done using a high speed lillian, kerrison rongeurs and curretes Once all of this was accomplished, the curved currette was used to check for any residual compression. The central canal was wide open as were the foramen. A high-speed bur was used to remove the cartilaginous endplates above and below the interspace. Bleeding cancellous bone was exposed. The disc space were measured and appropriate size cage were placed sterilely onto the field. Allograft graft was packed into the cages. The cage was then placed and there was good juxtaposition against the bleeding decorticated surfaces and good distraction of each interspace. Attention was brought to the next interspace. The Rousseau pins were removed. Bone wax was used to prevent any bleeding from occurring at the pin sites. Attention was brought to the C5/6 level that was confirmed on x-ray. A caspar pin was placed into the C5 vertebrae and the C6 vertebrae. The disk space was then distracted. The microscope was then brought in. A radical anterior discectomies were performed at C5/6. This included complete removal of the anterior annulus, nucleus, and posterior annulus. The posterior longitudinal ligament was removed as were the posterior osteophytes. Foraminotomies were then accomplished bilaterally. This was done using a high speed lillian, kerrison rongeurs and curretes Once all of this was accomplished, the curved currette was used to check for any residual compression. The central canal was wide open as were the foramen. A high-speed bur was used to remove the cartilaginous endplates above and below the interspace. Bleeding cancellous bone was exposed. The disc space were measured and appropriate size cage were placed sterilely onto the field. Allograft graft was packed into the cages. The cage was then placed and there was good juxtaposition against the bleeding decorticated surfaces and good distraction of each interspace. The Rousseau pins were removed. Bone wax was used to prevent any bleeding from occurring at the pin sites. The appropriate size anterior cervical locking plate was chosen and bent into gentle lordosis. Two screws were then placed into each of the vertebral bodies at C3, C4, C5 and C6. There was excellent purchase. A final x-ray was done confirming good position of the hardware and Cages. The locking screws were then applied, also with excellent purchase. Following a final copious irrigation, there was good hemostasis and no dural leaks. The carotid pulse was strong. The wounds were then closed in layers using 2-0 Vicryl suture for the platysma muscle, 2-0 Vicryl suture for the subcutaneous tissue, and 4-0 monocryl suture in a subcuticular skin closure. Glue was placed followed by application of a sterile dressing. The drain was hooked to bulb suction. A soft collar was applied. The patient was then carefully returned to the supine position on his hospital bed where he was reversed and extubated and taken to the recovery room having tolerated the procedure well.
[2025-06-18] MEDS: fentaNYL 50 mcg/mL INJ 2mL IVP ×2 (09:40→09:46)
[2025-06-18] MEDS: ondansetron 2 mg/ML SDV 2 mL 4 MG IVP ×2 (09:40→11:07)
--- NOTE | 2025-06-18 10:14 | ANE.PACU2 ---
Inpatient post-anesthesia follow up: Airway intact: Yes Vital signs: Temperature 98.2 F Pulse Rate 68 Respiratory Rate 16 Blood Pressure 102/65 Pulse Oximetry 98 Oxygen Delivery Me thod Room Air Oxygen Flow Rate Fraction of Inspir ed Oxygen Hydration adequate: Yes Nausea and vomiting: No Pain level: 1 Mental status: Baseline
--- OUTSIDE RECORDS SUMMARY | 2025-06-18 10:35 | XMS_ITS | Patient Health Record ---
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 4 mg [facility] 39099-. 419-00pt tolerated well/instructed to wait 20 min Ketorolac Tromethamine 01/05/2022 [place] [address]-07 pt tolerated well/instructed to wait 20 min Ketorolac Tromethamine 02/22/2023 [place] [address]-16 pt tolerated well/instructed to wait 20 min Ketorolac Tromethamine 03/29/2023 [place] [address]-91 pt tolerated well/instructed to wait 20 min Ketorolac Tromethamine 04/30/2023 [place] [address]-50 pt tolerated well/instructed to wait 20 min Medical (General) History Medical History History ICD Code Chicken Pox bronchitis asthma migraine headaches PTSD age 20 years anemia Back Trouble anxiety GERD Arthritis hives eczema Depression Surgical History Surgery Date(Month/Year) tubal ligation 2018 hysterectomy, total with unilateral salp ingo-oophorectomy (USO) 2019 Hospitalization History Reason Date(Month/Year) childbirth 09/03/09 childbirth 09/24/15 see surgical history
--- OUTSIDE RECORDS SUMMARY | 2025-06-18 10:35 | XMS_ITS | Clinical Summary ---
Author Organization [facility] Address [address] [place] [address] Care Team Providers Care T[employer] Finisher Name Role Phone Unavailable Primary Care Provider Unavailabl e Allergies Active Allergy Reactions Criticality Noted Date Comments Duloxetine Delirium Medium 09/08/2024 Violent out burst Escitalopram Other (See Comments) 09/08/2024 Suicidal thoughts Medications busPIRone (BUSPAR) 5 mg tablet 5 mg. Active predniSONE (DELTASONE) 20 mg tablet Take 3 tablets (60 mg) daily x 3 days; then 2 tablets (40mg) daily x 3 days then 1 tablet (20 mg) daily x 3 days TAKE THE ORAL STEROID WITH FOOD EARLY IN THE DAY WHILE TAKING THE ORAL STEROID DO NOT TAKE ANY NSAID's SUCH IBUPROFEN OR ALEVE UNTIL YOU HAVE COMPLETED THE STEROID -- MAY TAKE TYLENOL 18 Tablet Active Active Problems No known active problems Encounters Date Type Department Care Team Description 05/02/2025 External Device Data [facility] Provider, Abstract 05/01/2025 External Device Data [facility] Provider, Abstract 04/17/2025 External Device Data [facility] Provider, Abstract 03/28/2025 External Device Data [facility] Provider, Abstract 03/28/2025 External Device Data [facility] Provider, Abstract from Last 3 Months Social History Tobacco Use Types Packs/Day Years Used Date Smoking Tobacco: Never Assessed Comments Unknown Sex and Gender Information Value Date Recorded Sex Assigned at Not on file Legal Sex Female 2:43 PM [employer] Gender Identity Not on file Sexual Orientation Not on file Last Filed Vital Signs Vital Sign Reading Time Taken Comments Blood Pressure 116/84 09/08/2024 3:04 PM [employer] Pulse 94 09/08/2024 3:04 PM [employer] Temperature 37 C (98.6 F) 09/08/2024 3:04 PM [employer] Respiratory Rate 18 09/08/2024 3:04 PM [employer] Oxygen Saturation 99% 09/08/2024 3:04 PM [employer] Inhaled Oxygen Concentration - - Weight 74.8 kg (165 lb) 09/08/2024 3:04 PM [employer] Height 154.9 cm (5' 1 ) 09/08/2024 3:04 PM [employer] Body Mass Index 31.18 09/08/2024 3:04 PM [employer] Plan of Treatment Health Maintenance Due Date Last Done Comments Pre-Diabetes and Diabetes Screening 1986 DTAP/TDAP/TD VACCINES (1 - Tdap) 2005 HEPATITIS B VACCINES (1 of 3 - 19+ 3-dose series) 05/2005 HPV/Cotest (21-29) 2007 HPV VACCINES (1 - 3-dose SCDM series) 2013 CERVICAL CANCER SCREENING 2016 HPV/Cotest (30-65) 2016 PAP SMEAR 2016 INFLUENZA VACCINE (#1) 2025 Insurance [employer] [id number] POS II [facility]
[2025-06-18] MEDS: HYDROcodone-acetaminophen 10-325 mg Tablet PO ×3 (11:29→22:23)
--- NOTE | 2025-06-18 15:59 | XR_ITS ---
WS: [id number] Cervical spine, C-arm fluoroscopy views, 06/18/2025 Clinical Data: or pic, acdf Comparison: Cervical spine, 06/05/2025 Findings: Dr. Avila performed an anterior cervical disc fusion. XR/XR cervical spine 3V* [id number] Impression: Anterior cervical disc fusion.
[2025-06-18] MEDS: morphine 4 mg/mL SDV 1 mL 2 MG IVP (20:27)
[2025-06-19] VITALS: BP 104/64; PULSE 78; RESP 12; TEMP 36.6; O2SAT 96
[2025-06-19] MEDS: HYDROcodone-acetaminophen 10-325 mg Tablet PO ×2 (02:25→07:35)
[2025-06-19 04:00] VITALS: BP 105/69; PULSE 79; RESP 14; TEMP 36.6; O2SAT 97
[2025-06-19 04:31] VITALS: RESP 16
[2025-06-19] MEDS: morphine 4 mg/mL SDV 1 mL 2 MG IVP (04:31)
[2025-06-19 06:00] VITALS: BMI 31.2
[2025-06-19] MEDS: ceFAZolin 2,000 mg SDV 2000 MG IVP (06:08)
[2025-06-19 07:18] VITALS: BP 108/69; PULSE 84; RESP 16; TEMP 36.5; O2SAT 98
--- NOTE | 2025-06-19 09:36 | P.DS_ITS ---
Discharge Providers Date of Admission: 06/18/25 09:34 Date of Discharge: June 19, 2025 Attending Provider at Admission: Lazaro Avila DO Attending Provider at Discharge: Lazaro Avila DO Primary Care Provider: Gonzalo Figueroa DO Reason for Visit Reason for Visit: M50.00 Physical Exam Narrative: Patient doing well for her hand feels better. She thought she might have bitten her tongue but otherwise doing well swelling is hard but she is able to swallow. Urinary Catheter Management: Ruiz: Cath Placed During This Visit: yes, but has since been removed by the nurse Reason for Continuing Indwelling Catheter: Decision to DC Catheter Urinary Catheter Date of Insertion: 06/18/25 Urinary Catheter Time of Insertion: 07:15 Date Urinary Catheter Removed: 06/19/25 Time Urinary Catheter Discontinued: 05:43 Discharge Data Studies Completed and Pending Completed Studies During Hospitalization Category Date Time Status XR cervical spine 3V* [id number] Routine Exams 06/18/25 15:59 Completed Radiology Impressions Cervical Spine X-Ray 06/18/25 15:59 Impression: Anterior cervical disc fusion. Vitals Last Vital Signs Temp 97.7 F 06/19/25 07:18 Pulse 84 06/19/25 07:18 Resp 16 06/19/25 07:18 BP 108/69 06/19/25 07:18 Pulse Ox 98 06/19/25 07:18 O2 Del Method Room Air 06/19/25 07:18 Discharge Plan Discharge Patient Disposition: Home Condition: Stable Prescriptions: Continued albuterol sulfate 0.63 mg/3 mL solution for nebulization See Rx Instructions .ROUTE .COMPLEX Qty: 90 2RF Dose Instruction: USE ONE vial in NEBULIZER FOUR TIMES DAILY as needed for SHORTNESS OF BREATH OR wheezing Rx Instructions: USE ONE vial in NEBULIZER FOUR TIMES DAILY as needed for SHORTNESS OF BREATH OR wheezing ondansetron 4 mg tablet,disintegrating 4 mg PO Q8H PRN (Reason: nausea and vomiting) Qty: 20 0RF (DME) nebulizer accessories Kit See Rx Instructions .Route Qty: 1 0RF Rx Instructions: Please issue hose, chamber and mouthpiece. lidocaine 5 % adhesive patch,medicated See Rx Instructions .ROUTE .COMPLEX Qty: 30 1RF Dose Instruction: apply ONE PATCH topically DAILY; LEAVE ON most painful AREA for UP TO 12 hours Rx Instructions: apply ONE PATCH topically DAILY; LEAVE ON most painful AREA for UP TO 12 hours phentermine 37.5 mg capsule 37.5 mg PO DAILY Qty: 30 2RF albuterol sulfate 90 mcg/actuation HFA aerosol inhaler See Rx Instructions .ROUTE .COMPLEX Qty: 8.5 5RF Dose Instruction: INHALE TWO PUFFS BY MOUTH EVERY 6 HOURS NEEDED FOR SHORTNESS OF BREATH or wheezing Rx Instructions: INHALE TWO PUFFS BY MOUTH EVERY 6 HOURS NEEDED FOR SHORTNESS OF BREATH or wheezing chlorzoxazone 500 mg tablet 500 mg PO TID Rx Instructions: TAKE ONE-HALF TABLET BY MOUTH THREE TIMES DAILY NEEDED FOR MUSCLE SPASMS buspirone 10 mg tablet 10 mg PO TID Rx Instructions: TAKE ONE TABLET BY MOUTH THREE TIMES DAILY NEEDED FOR ANXIETY attacks Held ibuprofen 600 mg tablet 600 mg PO Q8H Hold Instructions: Resume on 06/21/25. Rx Instructions: TAKE ONE TABLET BY MOUTH EVERY 8 HOURS FOR PAIN for 30 DAYS Discontinued hydrocodone-acetaminophen 10-325 mg tablet 1 tab PO BID PRN (Reason: pain) 30 Days Qty: 60 0RF Discharge Order = DC NOW: Discharge Order (Routine); Ordered 06/19/25 Ordered By: Lazaro Avila Referrals: Lazaro Avila, [Physician, Orthopedics] - 07/03/25 2:15 pm Discharge Diet: Advance as tolerated Discharge Activity: Limit activity as instructed Patient Instructions: Acute Wound Care (DC), Opioid Safety, Post Anesthesia Care, Patient Portal & Deondre Instructions Activity Restrictions/Additional Instructions: Thank you for choosing [facility] for your care! The following is a list of instructions, from your provider, to follow upon your discharge to ensure you have the optimal recovery from your recent injury or surgery. Anterior Cervical Discectomy and Fusion: What to Expect at Home Your Recovery Follow-up care is a muñoz part of your treatment and safety. Be sure to make and go to all appointments, and call your doctor if you are having problems. If you do not already have a follow-up appointment made, call office in the next 1-3 days to make follow up appointment for 2 weeks at [phone]. It is also a good idea to know your test results and keep a list of the medicines you take. You can expect your neck to feel stiff or sore after surgery. This should improve in the weeks after surgery. But it may take 4 to 6 months for you to get better completely. You may have trouble sitting or standing in one position for very long and may need pain medicine in the weeks after your surgery. It may take 4 to 6 weeks to get back to your usual activities, but it may depend on what kind of surgery you had. Your throat will feel sore and it may be difficult to swallow for the first 3 da ys after your surgery. As long as you can get liquids down without difficulty, this should slowly improve, otherwise call our office or seek medical attention if it becomes increasingly difficult to get anything down including liquids. Avoid hot liquids for first 3-5 days. Soothing foods/liquids such as jello, pudding, and luke warm soups are recommended until swallowing improves. Staying elevated will also help, it's advised you keep propped up at while sleeping to help reduce the swelling. You may use an ice pack directly on your incision or around it on the front of your neck, using a cloth to protect your skin; and a heating pad to the back of your neck as needed. Do not use over the counter anti-inflammatory medications (Ibuprofen, Motrin, Aleve, Advil, etc) Taking these meds after having a fusion can delay fusion rates, we recommend you avoid them for the first 3 [address] after your surgery[address]. Avila may advise you to work with a physical therapist to strengthen the muscles around your neck and back - this will be discussed at your follow - up appointments. The pain or numbness you were having in your arms before surgery should get better or go away completely. This care sheet gives you a general idea about how long it will take for you to recover. But each person recovers at a different pace. Follow the steps below to get better as quickly as possible. How can you care for yourself at home? Activity ? Rest when you feel tired. Getting enough sleep will help you recover. ? Try to walk each day. Start by walking a little more than you did the day before. Bit by bit, increase the amount you walk. Walking boosts blood flow and helps prevent pneumonia and constipation. Walking may also decrease your muscle soreness after surgery. ? No lifting anything that is more that 5 pounds. This may include heavy grocery bags and milk containers, a heavy briefcase or backpack, cat litter or dog food bags, a child, or a vacuum leather cleaner. ? Avoid strenuous activities, such as bicycle riding, jogging, weightlifting, or aerobic exercise, until your doctor says it is okay. ? Do not drive until your follow-up visit after your surgery, or until your doctor says it isokay. ? Avoid taking long car trips for 2 to 4 weeks after surgery. Your neck may become tired and painful from sitting too long in one position. ? You will probably need to take 4 to 6 weeks off from work. It depends on the type of work you do and how you feel. ? You may have sex as soon as you feel able, but avoid positions that put stress on your neck or cause pain. Diet ? You can eat your normal diet. If your stomach is upset, try bland, low-fat foods like plain rice, broiled chicken, toast, and yogurt ? Drink plenty of fluids. If you have kidney, heart, or liver disease and have to limit fluids, talk with your doctor before you increase the amount of fluids you drink. ? You may notice that your bowel movements are not regular right after your surgery. This is common. Try to avoid constipation and straining with bowel movements. You may want to take a fiber supplement every day. If you have not had a bowel movement after a couple of days, ask your doctor about taking a mild laxative. Medicines ? Take pain medicines exactly as directed. 1. If Dr. Avila gave you a prescription medicine for pain, take lt as prescribed. 2. Do not take two or more pain medicines at the same time unless the doctor told you to. Many pain medicines have acetaminophen, which is Tylenol. Too much acetaminophen {Tylenol) can be harmful. 3. If you think your pain pill is making you sick to your stomach: 4. Take your pills after meals (unless your doctor has told you not to). 5. Ask your Dr. for a different pain pill. Incisioncare ? Remove your dressing 48hours after your surgery. Ok to shower and get the incision wet. Do not overtly wash your incision. When done, pad dry, leave open to air thereafter. Avoid creams and ointments directly on your incision. ? Your sutures in the incision will dissolve and fall out on their own. ? Keep the area clean and dry. You may cover it with a gauze bandage if it weeps or rubs against clothing; if you choose to do this, change the dressing everyday. Other instructions ? Use a heating pad, hot water bottle, or gentle massage on your back to reduce stiffness. Avoid putting heat on your incision When should you call for help? ? Call 911 anytime you think you may need emergency care. For example, call if: ? You pass out (lose consciousness). ? You have sudden chest pain and shortness of breath, or you cough upblood. ? You cannot swallow. ? You have severe pain in your neck or back. ? Call your Dr. or seek immediate medical care if: ? You have pain that does not get better after you take pain pills. ? You have loose stitches, or your incision comes open. ? You have blood or fluid draining from the incision. ? You have signs of infection, such as: 1. Increased pain, swelling, warmth, or redness. 2. Red streaks leading from the site. 3. Pus draining from the site. 4. Swollen lymph nodes in your neck or armpits. 5. A fever. ? You have severe pain in your arms. ? You have new or increased weakness or numbness in your arms. ? Watch closely for any changes in your health, and be sure to contact your doctor if: ? You do not have a bowel movement after taking a laxative. Discharge Attestations Time Spent in Discharge Care*: less than 30 min Quality Metrics Clinical Quality Measures [ No reported AMI, CVA or VTE this stay] Coding Level of Care Code Acute Code for Chg Fwd
[2025-06-19 10:08] VITALS: BP 110/72; PULSE 82; O2SAT 98
== END 2025-06-19 10:08 | disposition home or self-care (01) | DRG 472 ==
LOC: MEDSURG 10:20
PROVIDERS: Admitting Provider Orthopaedic Surgery; PCP Family Medicine; Visit Provider Orthopaedic Surgery
PROC: 0RB30ZZ Excision of Cervical Vertebral Disc, Open Approach (ICD-10-PCS; CPT 22551; principal; 2025-06-18 07:00)
DX: M48.02 Spinal stenosis, cervical region (principal); G99.2 Myelopathy in diseases classified elsewhere; M54.12 Radiculopathy, cervical region; R42 Dizziness and giddiness; J45.998 Other asthma; F41.9 Anxiety disorder, unspecified; F32.A Depression, unspecified; F43.10 Post-traumatic stress disorder, unspecified
CPT/HCPCS: 51702; 72040; 76000; 97161; C1713; C1763; C9359; J0690; J1885; J2250; J2270; J2405; J2704; J3010; J3490; J7030; J7120; J9999

== ENCOUNTER → 2025-07-31 13:23 | Outpatient (BNVA) | payer OTHER, SELFPAY | PROVIDERS: PCP Family Medicine; Visit Provider Orthopaedic Surgery | DX: Z98.890 Other specified postprocedural states (principal); Z98.1 Arthrodesis status | CPT/HCPCS: 72040 ==

== ENCOUNTER → 2025-08-21 07:47 | Outpatient (BNVA) | payer OTHER, SELFPAY | PROVIDERS: PCP Family Medicine; Visit Provider Orthopaedic Surgery | DX: Z98.890 Other specified postprocedural states (principal); Z98.1 Arthrodesis status | CPT/HCPCS: 72040 ==